=== PATIENT | male | born 1995 | race Hispanic/Latino ===

== ENCOUNTER 2020-11-29 19:22 | Emergency (ER) | payer BC, SELFPAY ==
[2020-11-29 19:59] LABS: Urine Blood 1+ (Negative); Urine Glucose Negative (Negative); Urine Protein Negative (Negative)
[2020-11-29] MEDS ORDERED: ONDANSETRON 4 MG/2 ML VIAL ONE (20:11)
[2020-11-29] MEDS ORDERED: CEFTRIAXONE 1000 MG/VIAL ONE (20:11)
[2020-11-29 20:12] LABS: Absolute Lymphocytes (CBC) 2.1 K/uL (0.7-4.9); Basophils % 0.3 % (0-1.3); Hematocrit 46.7 % (39.6-49.0); Lymphocytes % 21.2 % (15.3-44.8); MPV 8.9 fL (7.6-11.3)
[2020-11-29] MEDS ORDERED: KETOROLAC 30 MG/ML INJ ONE (20:12)
[2020-11-29] MEDS ORDERED: NA CHLORIDE 0.9% 1,000 ML ONE (20:12)
[2020-11-29 20:44] LABS: Potassium 4.4 mmol/L (3.5-5.1)
--- NOTE | 2020-11-29 20:48 | RAD REPORT ---
EXAM DESCRIPTION: US - Scrotum Testicles - 11/29/2020 8:34 pm CLINICAL HISTORY: Testicular pain COMPARISON: None FINDINGS: Right testicle measures 4.5 x 2.1 x 2.9 centimeters. Echotexture is homogeneous. Normal bl ood flow Left testicle measures 4.3 x 2 x 2.9 centimeters. Echotexture is homogeneous. Normal blood flow The epididymides are normal in size and echotexture. Normal blood flow is seen. Prominent soft tissue is present within the superior aspect of the left scrotum IMPRESSION: Prominent soft tissue within the superior aspect of the left scrotum may indicate a km ia
--- NOTE | 2020-11-29 21:28 | RAD REPORT ---
EXAM DESCRIPTION: CT - Abdomen Pelvis W Contrast - 11/29/2020 9:05 pm CLINICAL HISTORY: Abdominal pain TECHNIQUE: Computed axial tomography of the abdomen pelvis was obtained. 100 cc Isovue-300 was admin istered intravenously. Oral contrast was not requested which limits evaluation of bowel. All CT scans are performed using dose optimization technique as appropriate and may include automated exposure control or mA/KV adjustment according to patient size. FINDINGS: The liver, spleen, pancreas, adrenal and kidneys appear unremarkable. There is no evidence of diverticulitis. The normal appendix A left inguinal hernia is not visualized. However, there is a small right inguinal hernia containing fat. Small umbilical hernia IMPRESSION: No acute abnormality is displayed.
--- NOTE | 2020-11-29 21:37 | ER ---
Nurse's Notes [facility] Name: Pranav Carr Age: 25 yrs Sex: Male : 1995 Arrival Date: 11/29/2020 Time: 19:27 Bed 7 Private MD: Diagnosis: Abdominal tenderness-left testicular pain, currently treated for mild epididymitis Presentation: 11/29 19:30 Chief complaint: Patient states: left sided testicular pain that started yesterday sj1 around 1999. Denies discharge, painful urination. Coronavirus screen: Vaccine status: Patient reports being unvaccinated. Ebola Screen: Patient negative for fever greater than or equal to 101.5 degrees Fahrenheit, and additional compatible Ebola Virus Disease symptoms Patient denies exposure to infectious person. Patient denies travel to an Ebola-affected area in the 21 days before illness onset. Initial Sepsis Screen: Does the patient meet any 2 criteria? No. Patient's initial sepsis screen is negative. Does the patient have a suspected source of infection? No. Patient's initial sepsis screen is negative. Risk Assessment: Do you want to hurt yourself or someone else? Patient reports no desire to harm self or others. Onset of symptoms was November 28, 2020. 19:30 Method Of Arrival: Ambulatory [facility] 19:30 Acuity: YULISA 3 sj1 22:05 Note PT UP FOR DISCHARGE AT THIS TIME. PT AWAKE ALERT AOX4 SPEAKING IN FULL SENTENCES. cw2 PT AMBULATORY ALONE WITH A STEADY GAIT. DISCHARGE INSTRUCTIONS DISCUSSED WITH PT/SPOUSE. ALL QUESTIONS ANSWERED AND NO CONCERNS VERBALIZED AT THIS TIME. PT ADVISED TO RETURN TO ED AT ANYTIME. PT ACKNOWLEDGES. PT STABLE FOR DISCHARGE. Triage Assessment: 19:33 General: Appears in no apparent distress. Behavior is calm, cooperative, appropriate sj1 for age. Pain: Complains of pain in left testicular Pain does not radiate. Pain currently is 6 out of 10 on a pain scale. at worst was 10 out of 10 on a pain scale. level that patient reports is acceptable is 2 out of 10 on a pain scale. Quality of pain is described as crampy, Pain began 1 day ago. Historical: - Allergies: 19:33 No Known Allergies; sj1 - Home Meds: 19:33 lisinopril 10 mg Oral tab 1 tab once daily [Active]; sj1 - PMHx: 19:33 Hypertensive disorder; sj1 - Immunization history:: Adult Immunizations up to date. - Social history:: Smoking status: Patient denies any tobacco usage or history of. Patient uses alcohol, only on a social basis. Patient/guardian denies using street drugs. - Code Status:: Full code. Screenin:35 Abuse screen: Denies threats or abuse. Denies injuries from another. Nutritional sj1 screening: No deficits noted. Tuberculosis screening: No symptoms or risk factors identified. Fall Risk None identified. Assessment: 19:57 General: Appears in no apparent distress. Behavior is calm, cooperative. Pain: cw2 Complains of pain in groin Pain does not radiate. Pain currently is 3 out of 10 on a pain scale. Quality of pain is described as sharp, Pain began 1 day ago. Is continuous. Neuro: No deficits noted. Cardiovascular: No deficits noted. Respiratory: No deficits noted. GI: No deficits noted. : Reports burning with urination, since 24hrs AGO Parent/caregiver report the patient having discharge from penis that is. Vital Signs: 19:30 BP 128 / 77 RA Sitting (auto/reg); Pulse 86; Resp 16 S; Temp 98.5(O); Pulse Ox 100% on sj1 R/A; Weight 105.69 kg (R); Height 6 ft. 2 in. (187.96 cm) (R); Pain 6/10; 19:59 BP 123 / 75; Pulse 85; Resp 15; Pulse Ox 99% on R/A; Pain 3/10; cw2 21:00 BP 180 / 76; Pulse 79; Resp 16; Pulse Ox 98% on R/A; cw2 19:30 Body Mass Index 29.92 (105.69 kg, 187.96 cm) sj1 [place] Coma Score: 19:59 Eye Response: spontaneous(4). Verbal Response: oriented(5). Motor Response: obeys cw2 commands(6). Total: 15. ED Course: 19:27 Patient arrived in ED. bp1 19:33 Triage completed. sj1 19:36 Derek Nichols MD is Attending Physician. kadi 19:36 Arm band placed on left wrist. sj1 19:36 Patient has correct armband on for positive identification. sj1 19:44 Bryant Jacobson RN is Primary Nurse. cw2 19:59 No provider procedures requiring assistance completed. Initial lab(s) drawn, by ED cw2 staff, Urine collected: clean catch specimen, clear. Inserted saline lock: 20 gauge in left forearm, using aseptic technique. Blood collected. 20:01 Chem 7 Sent. cw2 20:01 CBC with Diff Sent. cw2 20:01 Urine Culture Sent. cw2 20:34 US Scrotum Testicles In Process Unspecified. EDMS 21:05 CT Abd/Pelvis - IV Contrast Only In Process Unspecified. EDMS 21:37 Robert Acevedo MD is Referral Physician. [facility] 22:07 IV discontinued. cw2 Administered Medications: 19:55 Drug: Zofran (Ondansetron) 4 mg Route: IVP; Site: left forearm; cw2 19:56 Drug: NS 0.9% 1000 ml Route: IV; Rate: 1 bolus; Site: left forearm; cw2 19:56 Drug: Rocephin (cefTRIAXone) 1 grams Route: IV; Rate: per protocol; Site: left forearm; cw2 19:56 Drug: TORadol (ketorolac) 30 mg Route: IVP; Site: left forearm; cw2 Outcome: 20:00 Condition: good cw2 21:37 Discharge ordered by MD. kadi 22:07 Discharged to home ambulatory. cw2 22:07 Condition: good 22:07 Discharge instructions given to patient, family, Instructed on discharge instructions, follow up and referral plans. 22:08 Patient left the ED. cw2 Signatures: Dispatcher [employer] Derek Bourgeois MD MD cha [place], Brittany bp1 Williams, Christopher, RN RN cw2 Amber Bal RN RN sj1 Corrections: (The following items were deleted from the chart) 21:09 21:06 BP 126 / 73; Pulse 81bpm; Resp 15bpm; Pulse Ox 98%; cw2 cw2
--- NOTE | 2020-11-29 21:37 | EDPHYS ---
Physician Documentation [facility] Name: Pranav Carr Age: 25 yrs Sex: Male : 1995 Arrival Date: 11/29/2020 Time: 19:27 Bed 7 Private MD: ED Physician Derek Nichols HPI: 11/29 20:52 This 25 yrs old Male presents to ER via Ambulatory with complaints of kadi Testicular Pain. 20:52 The patient presents with flank pain, described as crampy, sharp, of the left low back kadi and right low back. Onset: The symptoms/episode began/occurred 1 day(s) ago. Modifying factors: The symptoms are alleviated by nothing, the symptoms are aggravated by nothing. Associated signs and symptoms: The patient has no apparent associated signs or symptoms. Severity of symptoms: At their worst the symptoms were mild, moderate, in the emergency department the symptoms are unchanged. The patient has not experienced similar symptoms in the past. Historical: - Allergies: 19:33 No Known Allergies; sj1 - Home Meds: 19:33 lisinopril 10 mg Oral tab 1 tab once daily [Active]; sj1 - PMHx: 19:33 Hypertensive disorder; sj1 - Immunization history:: Adult Immunizations up to date. - Social history:: Smoking status: Patient denies any tobacco usage or history of. Patient uses alcohol, only on a social basis. Patient/guardian denies using street drugs. - Code Status:: Full code. ROS: 20:53 Constitutional: Negative for fever, chills, and weight loss, Eyes: Negative for injury, kadi pain, redness, and discharge, ENT: Negative for injury, pain, and discharge, Neck: Negative for injury, pain, and swelling, Cardiovascular: Negative for chest pain, palpitations, and edema, Respiratory: Negative for shortness of breath, cough, wheezing, and pleuritic chest pain, MS/Extremity: Negative for injury and deformity, Skin: Negative for injury, rash, and discoloration, Neuro: Negative for headache, weakness, numbness, tingling, and seizure, Psych: Negative for depression, anxiety, suicide ideation, homicidal ideation, and hallucinations, Allergy/Immunology: Negative for hives, rash, and allergies, Endocrine: Negative for neck swelling, polydipsia, polyuria, polyphagia, and marked weight changes, Hematologic/Lymphatic: Negative for swollen nodes, abnormal bleeding, and unusual bruising. 20:53 Abdomen/GI: Positive for abdominal pain, of the suprapubic area, posterior aspect of left lateral abdomen, posterior aspect of right lateral abdomen, right lower quadrant and left lower quadrant. 20:53 Back: Positive for flank pain, bilaterally. 20:53 : Positive for testicular pain of the left testicle. Exam: 20:53 Constitutional: This is a well developed, well nourished patient who is awake, alert, kadi and in no acute distress. Head/Face: Normocephalic, atraumatic. Eyes: Pupils equal round and reactive to light, extra-ocular motions intact. Lids and lashes normal. Conjunctiva and sclera are non-icteric and not injected. Cornea within normal limits. Periorbital areas with no swelling, redness, or edema. ENT: Nares patent. No nasal discharge, no septal abnormalities noted. Tympanic membranes are normal and external auditory canals are clear. Oropharynx with no redness, swelling, or masses, exudates, or evidence of obstruction, uvula midline. Mucous membranes moist. Neck: Trachea midline, no thyromegaly or masses palpated, and no cervical lymphadenopathy. Supple, full range of motion without nuchal rigidity, or vertebral point tenderness. No Meningismus. Chest/axilla: Normal chest wall appearance and motion. Nontender with no deformity. No lesions are appreciated. Cardiovascular: Regular rate and rhythm with a normal S1 and S2. No gallops, murmurs, or rubs. Normal PMI, no JVD. No pulse deficits. Respiratory: Lungs have equal breath sounds bilaterally, clear to auscultation and percussion. No rales, rhonchi or wheezes noted. No increased work of breathing, no retractions or nasal flaring. Abdomen/GI: Soft, non-tender, with normal bowel sounds. No distension or tympany. No guarding or rebound. No evidence of tenderness throughout. Back: No spinal tenderness. No costovertebral tenderness. Full range of motion. Skin: Warm, dry with normal turgor. Normal color with no rashes, no lesions, and no evidence of cellulitis. MS/ Extremity: Pulses equal, no cyanosis. Neurovascular intact. Full, normal range of motion. Neuro: Awake and alert, GCS 15, oriented to person, place, time, and situation. Cranial nerves II-XII grossly intact. Motor strength 5/5 in all extremities. Sensory grossly intact. Cerebellar exam normal. Normal gait. Psych: Awake, alert, with orientation to person, place and time. Behavior, mood, and affect are within normal limits. 20:53 : CVA tenderness, noted bilaterally, Male external genitalia: normal, Patient is not circumisioned. Bladder: is normal, Sexual behavior: the patient is sexually active, and reports a single partner. Vital Signs: 19:30 BP 128 / 77 RA Sitting (auto/reg); Pulse 86; Resp 16 S; Temp 98.5(O); Pulse Ox 100% on sj1 R/A; Weight 105.69 kg (R); Height 6 ft. 2 in. (187.96 cm) (R); Pain 6/10; 19:59 BP 123 / 75; Pulse 85; Resp 15; Pulse Ox 99% on R/A; Pain 3/10; cw2 21:00 BP 180 / 76; Pulse 79; Resp 16; Pulse Ox 98% on R/A; cw2 19:30 Body Mass Index 29.92 (105.69 kg, 187.96 cm) sj1 [place] Coma Score: 19:59 Eye Response: spontaneous(4). Verbal Response: oriented(5). Motor Response: obeys cw2 commands(6). Total: 15. MDM: 19:37 Patient medically screened. kadi 20:56 Differential diagnosis: UTI, testicular torsion, nonspecific abdominal pain, UTI, kadi prostatitis, urethritis. Data reviewed: vital signs, nurses notes, lab test result(s), EKG, radiologic studies, CT scan, ultrasound. Data interpreted: case monitor: not applicable for this patient encounter. rate is 85 beats/min, rhythm is regular, Pulse oximetry: on room air is 99 %. Test interpretation: by ED physician or midlevel provider: plain radiologic studies. Counseling: I had a detailed discussion with the patient and/or guardian regarding: the historical points, exam findings, and any diagnostic results supporting the discharge/admit diagnosis, lab results, radiology results. 11/29 19:38 Order name: CBC with Diff; Complete Time: 20:51 kadi 11/29 19:38 Order name: Chem 7; Complete Time: 20:51 kadi 11/29 19:38 Order name: US Scrotum Testicles; Complete Time: 20:51 [facility] 11/29 19:38 Order name: Urine Culture [facility] 11/29 19:58 Order name: Urine Dipstick-Ancillary; Complete Time: 20:51 [facility] 11/29 20:52 Order name: CT Abd/Pelvis - IV Contrast Only [facility] 11/29 19:38 Order name: Urine Dipstick-Ancillary (obtain specimen); Complete Time: 20:01 [facility] Administered Medications: 19:55 Drug: Zofran (Ondansetron) 4 mg Route: IVP; Site: left forearm; cw2 19:56 Drug: NS 0.9% 1000 ml Route: IV; Rate: 1 bolus; Site: left forearm; cw2 19:56 Drug: Rocephin (cefTRIAXone) 1 grams Route: IV; Rate: per protocol; Site: left forearm; cw2 19:56 Drug: TORadol (ketorolac) 30 mg Route: IVP; Site: left forearm; cw2 Disposition Summary: 11/29/20 21:37 Discharge Ordered Location: Home [facility] Problem: new [facility] Symptoms: have improved [facility] Condition: Stable [facility] Diagnosis - Abdominal tenderness - left testicular pain, currently treated for mild epididymitischa Followup: [facility] - With: Private Physician - When: 2 - 3 days - Reason: Recheck today's complaints, Continuance of care, Re-evaluation by your physician Followup: [facility] - With: Robert Acevedo MD - When: 2 - 3 days - Reason: Recheck today's complaints, Continuance of care, Re-evaluation by your physician Discharge Instructions: - Discharge Summary Sheet [facility] - Abdominal Pain, Adult [facility] - Epididymitis [facility] - Hematuria, Adult [facility] Forms: - Medication Reconciliation Form [facility] - Thank You Letter [facility] - Antibiotic Education [facility] - Prescription Opioid Use [facility] Prescriptions: - Ibuprofen 600 mg Oral Tablet - take 1 tablet by ORAL route every 6 hours As needed take with food; 20 tablet; [facility] Refills: 0, Product Selection Permitted - Doxycycline Hyclate 100 mg Oral Tablet - take 1 tablet by ORAL route every 12 hours; 20 tablet; Refills: 0, Product [facility] Selection Permitted Signatures: Dispatcher [employer] Derek Bourgeois MD MD cha Williams, Christopher RN RN cw2 Amber Bal RN RN sj1
[2020-11-29 22:13] VITALS: TEMP 98.5
[2020-11-29 22:15] VITALS: BP 180/76; O2SAT 98
== END 2020-11-29 22:08 | disposition home or self-care (01) ==
LOC: ER 19:22
DX: N45.1 Epididymitis (principal); R10.819 Abdominal tenderness, unspecified site; I10 Essential (primary) hypertension
CPT/HCPCS: 87088; 85025; 87086; 80048; 36415; 81003; 74177; 76870; 96375; 96374; 99284; Q9967; J7030; J2405

== ENCOUNTER 2024-04-18 22:46 | Observation (INO) | payer BC ==
--- OUTSIDE RECORDS SUMMARY | 2024-04-18 22:50 | XMS REPORT | Continuity of Care Document ---
Author Name Unknown Address [address] [facility] [place] [address] [facility] Address [address] [facility] [place] [address] Care Team Providers Care General Distillery Worker Name Role Phone LAB90 Attending Clinician Unavailable ROSALIE HIDALGO Attending Clinician Unavailab SUGAR Rock Attending Clinician Unavailable HANNAH BRENNAN Attending Clinician Unavailable Sugar Garcia Attending Clinician [phone] Payers Payer Name Policy Type Policy Number Effective Date Expirati on Date Source [facility] 2 [id number] 2023 00:00:00 Problems Condition Name Condition Details Condition Category Status Onset Date Resolution Date Last Treatment Date Treating Clinician Comments Source Influenza A Influenza A Disease Active 2021-02 00:00: 00 Felipa Douglasa david Well adult exam Well adult exam Disease Active 2021-02 00:00: 00 Felipa Douglasa david Prediabete s Prediabete s Disease Active 2021-02 00:00: 00 Felipa Douglasa l 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 Disease Active 2021-02 00:00: 00 Felipa hernandez Vitamin D deficiency Vitamin D deficiency Disease Active 2021-02 00:00: 00 Felipa Harry Externa david Hypertensi on Hypertensi on Disease Active 2020-02 0-04 00:00: 00 Felipa Emerson Overweight Overweight Disease Active 2021-1 0-04 00:00: 00 Felipa Emerson Class 1 obesity due to excess calories without serious comorbidit y with body mass index (BMI) of 33.0 to 33.9 in adult Class 1 obesity due to excess calories without serious comorbidit y with body mass index (BMI) of 33.0 to 33.9 in adult Disease Active 2020-02 00:00: 00 Felipa Emerson - Externa l Primary hypertensi on Primary hypertensi on Disease Active 2020-02 00:00: 00 Felipa Emerson - Externa l Class 1 obesity due to excess calories without serious comorbidit y with body mass index (BMI) of 33.0 to 33.9 in adult Class 1 obesity due to excess calories without serious comorbidit y with body mass index (BMI) of 33.0 to 33.9 in adult Disease Active 2020-02 00:00: 00 Felipa Maravillaold - Externa l Social History Social Habit Start Date Stop Date Quantity Comments Source Sexual orientation K germán Emerson - External History of Occupation Felipa Emerson - External Exposure to SARS-CoV-2 (event) Not sure Felipa Heredia ybold History SDOH Alcohol Frequency Felipa jessica - External History SDOH Alcohol Std Drinks Felipa Heredia ybold - External History SDOH Alcohol Binge Felipa Emerson - External Alcoholic beverage intake 2023-11-23 00:00:00 2023-11-23 00:00:00 .29 /d Felipa Emerson - External History of Social function 2022-11-19 00:00:00 2022-11-19 00:00:00 Felipa Emerson - External Alcohol intake 2022-02-15 00:00:00 2022-02-15 00:00:00 .29 /d Felipa Emerson - External Tobacco use and exposure 2022-01-30 00:00:00 2022-01-30 00:00:00 Smokeless tobacco non-user Felipa Emerson - External Alcohol Comment 2022-01-30 00:00:00 2022-01-30 00:00:00 moderately Felipa Emerson - External Education 2022-01-30 00:00:00 2022-01-30 00:00:00 17 Felipa Emerson - External Sex 2020-05-18 17:33:04 2020-05-18 17:33:04 Male (finding) Felipa Sesaroj Harry External Sex assigned at 1995 00:00:00 1995 00:00:00 M Felipa Haile Smoking Status Start Date Stop Date Source Never smoked tobacco Felipa Haile Medications Ordered Medication Name Filled Medication Name Start Date Stop Date Current Medication? Ordering Clinician Indication Dosage Frequency Signature (SIG) Comments Components Source Omeprazole 20 MG oral Delayed Release Capsule 2023-02 10:08: 56 Yes 20mg QD Take 1 capsule (20 mg total) by mouth daily as needed. Felipa hernandez Lisinopril 10 MG oral Tablet 2023-02 00:00: 00 Yes [id number] 10mg QD Take 1 tablet (10 mg total) by mouth daily. Felipa hernandez Lisinopril 10 MG oral Tablet 08-30 00:00: 00 11-22 00:00 :00 No [id number] take 1 tablet by mouth every day Felipa hernandez Omeprazole 20 MG oral Delayed Release Capsule 2021-02 11:20: 17 Yes 20mg QD Take 20 mg by mouth daily as needed Felipa hernandez Benzonatate (Tessalon Perles) 100 MG oral Capsule 2021-02 00:00: 00 11-22 00:00 :00 No [id number] 100mg Q.12520301 [id number] 3D Take 1 capsule (100 mg total) by mouth 3 times daily as needed for cough Felipa hernandez Albuterol HFA 108 (90 Base) MCG/ACT IN AERS 2021-02 00:00: 00 11-22 00:00 :00 No [id number] 2{puff} Q.25D Inhale 2 puffs into the lungs every 6 hours as needed for wheezing or shortness of breath Felipa hernandez Oseltamivir Phosphate 75 MG oral Capsule 2021-02 00:00: 00 02-21 05:59 :00 No [id number] 75mg Take 1 capsule (75 mg total) by mouth 2 times daily for 5 days Felipa hernandez Azithromyci n 250 MG oral Tablet 2021-02 00:00: 00 02-21 05:59 :00 No [id number] Take 2 tablets by mouth on day 1 then 1 tablet by mouth daily for 4 days thereafter . Felipa hernandez Cholecalcif mike (Vitamin D3) 20 MCG (800 UNIT) oral Tablet 2021-02 00:00: 00 Yes [id number] 1{tbl} Take 1 tablet by mouth daily Felipa hernandez Cholecalcif mike (Vitamin D3) 20 MCG (800 UNIT) oral Tablet 2021-02 00:00: 00 Yes [id number] 1{tbl} QD Take 1 tablet by mouth daily Felipa hernandez Omeprazole 20 MG oral Delayed Release Capsule 2021-02 09:03: 57 Yes 20mg QD Take 20 mg by mouth daily as needed Felipa hernandez Lisinopril 10 MG oral Tablet 2021-02 00:00: 00 Yes [id number] TAKE 1 TABLET BY MOUTH EVERY DAY Felipa hernandez Lisinopril 10 MG oral Tablet 2020-02 00:00: 00 Yes [id number] TAKE 1 TABLET BY MOUTH EVERY DAY Felipa Emerson Vitamin D, Ergocalcife rol, 1.25 MG (93639 UT) oral Capsule 2020-02 00:00: 00 Yes [id number] 56370W Take 1 capsule (50,000 units total) by mouth once a week Felipa Emerson Ceftriaxone Sodium (ROCEPHIN) 1 g 2020-02 22:00: 00 11-29 22:00 :00 No [id number] 1g Felipa Emerson Doxycycline Hyclate 100 MG oral Tablet 2020-02 00:00: 00 01-30 00:00 :00 No [id number] 100mg Take 1 tablet (100 mg total) by mouth 2 times daily Felipa hernandez Azithromyci n 1 g oral Pack 2020-02 00:00: 00 11-30 04:59 :00 No [id number] 1g Take 1 packet (1 g total) by mouth once for 1 dose Felipa Emerson Lisinopril 10 MG oral Tablet 2020-02 00:00: 00 Yes [id number] 10mg Take 1 tablet (10 mg total) by mouth daily Felipa Emerson Vital Signs Vital Name Observation Time Observation Value Comments S ource Systolic blood pressure 2023-11-23 15:10:00 126 mm[Hg] Felipa Herediaybo ld - External Diastolic blood pressure 2023-11-23 15:10:00 82 mm[Hg] Felipagallo Maravillao ld - External Heart rate 2023-11-23 15:10:00 59 /min Taye Emerson - External Body temperature 2023-11-23 15:10:00 36.06 Citlalli Felipa Maravillaold - External Respiratory rate 2023-11-23 15:10:00 18 /min Felipagallo Maravillaold - External Body height 2023-11-23 15:10:00 188 cm Clarisa page Seybold - External Body weight 2023-11-23 15:10:00 95.709 kg Clarisa camilo Seybold - External BMI 2023-11-23 15:10:00 27.09 kg/m2 Clarisa camilo Seybold - External Oxygen saturation in Arterial blood by Pulse oximetry 2023-11-23 15:10:00 99 /min Felipagallo Maravillamir ld - External Respiratory rate 2022-02-15 17:15:00 16 /min Felipa Herediaybold - External Body height 2022-02-15 17:15:00 188 cm Clarisa ey Seybold - External Body weight 2022-02-15 17:15:00 116.121 kg Clarisa ey Seybold - External BMI 2022-02-15 17:15:00 32.87 kg/m2 Clarisa ey Seybold - External Systolic blood pressure 2022-02-15 17:15:00 128 mm[Hg] Felipa Herediaybo ld - External Diastolic blood pressure 2022-02-15 17:15:00 76 mm[Hg] Felipa Seybo ld - External Heart rate 2022-02-15 17:15:00 95 /min Taye y Renitaold - External Body temperature 2022-02-15 17:15:00 36.78 Citlalli Felipa Seybold - External Body temperature 2022-01-30 13:55:00 36.56 Citlalli Felipa Seybold - External Respiratory rate 2022-01-30 13:55:00 16 /min Felipa Seybold - External Body height 2022-01-30 13:55:00 188 cm Clarisa ey Seybold - External Body weight 2022-01-30 13:55:00 116.574 kg Clarisa ey Seybold - External BMI 2022-01-30 13:55:00 33.00 kg/m2 Clarisa ey Seybold - External Systolic blood pressure 2022-01-30 13:55:00 122 mm[Hg] Felipa Seybo ld - External Diastolic blood pressure 2022-01-30 13:55:00 82 mm[Hg] Felipa Seybo ld - External Heart rate 2022-01-30 13:55:00 79 /min Kelse y Seybold - External Systolic blood pressure 2020-12-20 20:53:00 114 mm[Hg] Felipa Seybo ld Diastolic blood pressure 2020-12-20 20:53:00 72 mm[Hg] Felipa Seybo ld Heart rate 2020-12-20 20:53:00 76 /min Kelse y Seybold Body temperature 2020-12-20 20:53:00 37 Citlalli Felipa Seybold Respiratory rate 2020-12-20 20:53:00 14 /min Felipa Seybold Body height 2020-12-20 20:53:00 188 cm Clarisa ey Seybold Body weight 2020-12-20 20:53:00 105.235 kg Clarisa ey Seybold BMI 2020-12-20 20:53:00 29.79 kg/m2 Clarisa ey Seybold Systolic blood pressure 2020-12-20 20:53:00 114 mm[Hg] Felipa Seybo ld Diastolic blood pressure 2020-12-20 20:53:00 72 mm[Hg] Felipa Seybo ld Heart rate 2020-12-20 20:53:00 76 /min Kelse y Seybold Body temperature 2020-12-20 20:53:00 37 Citlalli Felipa Seybold Respiratory rate 2020-12-20 20:53:00 14 /min Felipa Seybold Body height 2020-12-20 20:53:00 188 cm Clarisa ey Seybold Body weight 2020-12-20 20:53:00 105.235 kg Clarisa ey Seybold BMI 2020-12-20 20:53:00 29.79 kg/m2 Clarisa ey Seybold Systolic blood pressure 2020-11-29 21:09:00 117 mm[Hg] Felipa Seybo ld Diastolic blood pressure 2020-11-29 21:09:00 79 mm[Hg] Felipa Seybo ld Heart rate 2020-11-29 21:09:00 87 /min Kelse y Seybold Body temperature 2020-11-29 21:09:00 36.78 Citlalli Felipa Seybold Respiratory rate 2020-11-29 21:09:00 14 /min Felipa Seybold Body height 2020-11-29 21:09:00 188 cm Clarisa ey Seybold Body weight 2020-11-29 21:09:00 105.688 kg Clarisa ey Seybold BMI 2020-11-29 21:09:00 29.92 kg/m2 Clarisa ey Seybold Systolic blood pressure 2020-11-29 21:09:00 117 mm[Hg] Felipa Seybo ld Diastolic blood pressure 2020-11-29 21:09:00 79 mm[Hg] Felipa Seybo ld Heart rate 2020-11-29 21:09:00 87 /min Kelse y Seybold Body temperature 2020-11-29 21:09:00 36.78 Citlalli Felipa Seybold Respiratory rate 2020-11-29 21:09:00 14 /min Felipa Seybold Body height 2020-11-29 21:09:00 188 cm Clarisa ey Seybold Body weight 2020-11-29 21:09:00 105.688 kg Clarisa ey Seybold BMI 2020-11-29 21:09:00 29.92 kg/m2 Clarisa ey Seybold Systolic blood pressure 2020-11-22 20:24:00 172 mm[Hg] Felipa Seybo ld Diastolic blood pressure 2020-11-22 20:24:00 108 mm[Hg] Felipa Seybo ld Heart rate 2020-11-22 20:24:00 92 /min Taye y Idania Body temperature 2020-11-22 20:24:00 37.39 Citlalli Felipa Emerson Respiratory rate 2020-11-22 20:24:00 16 /min Felipa Emerson Body height 2020-11-22 20:24:00 188 cm Clarisa Emerson Body weight 2020-11-22 20:24:00 111.585 kg Clarisa Emerson BMI 2020-11-22 20:24:00 31.58 kg/m2 Clarisa page Seybdoni Systolic blood pressure 2020-11-22 20:24:00 172 mm[Hg] Felipa Herediaybo ld Diastolic blood pressure 2020-11-22 20:24:00 108 mm[Hg] Felipa Maravillao ld Heart rate 2020-11-22 20:24:00 92 /min Taye Emerson Body temperature 2020-11-22 20:24:00 37.39 Citlalli Felipa Emerson Respiratory rate 2020-11-22 20:24:00 16 /min Felipa Emerson Body height 2020-11-22 20:24:00 188 cm Clarisa Emerson Body weight 2020-11-22 20:24:00 111.585 kg Clarisa Emerson BMI 2020-11-22 20:24:00 31.58 kg/m2 Clarisa Emerson Procedures Procedure Date / Time Performed Performing Clinician Source LS RAPID STREP ASSAY-LAB TEST 2022-02-15 17:49:00 Hannah Brennan - External LS RAPID FLU ASSAY-LAB TEST 2022-02-15 17:49:00 Hannah Brennan - External WRITTEN AUTHORIZATION 2020-11-22 21:28:00 Sugar Trotter HGB A1C WITH MBG ESTIMATION 2020-11-22 21:28:00 Sugar Trotter GGT 2020-11-22 21:28:00 Sugar Trotter eybold CMP14+CBC/D/PLT+TSH W/RFLX 2020-11-22 21:28:00 Sugar Trotter Encounters Start Date/Time End Date/Time Encounter Type Admission Type Attending [facility] Care Department Encounter ID Source 2023-11-23 10:45:00 2023-11-23 10:45:00 Outpatient NAN FELIPA DAVID [id number] [facility] 2023-11-23 10:00:00 2023-11-23 10:00:00 Outpatient ROSALIE HIDALGO FELIPA DAVID [id number] [facility] 2023-11-20 00:00:00 2023-11-20 00:00:00 Outpatient SUGAR TROTTER FELIPA DAVID [id number] [facility] 2023-10-05 00:00:00 2023-10-05 00:00:00 Outpatient KHADIJAHDavid SUGAR DAVID [id number] [facility] 2023-08-31 00:00:00 2023-08-31 00:00:00 Outpatient SERGO SUGAR DAVID [id number] [facility] 2022-11-04 00:00:00 2022-11-04 00:00:00 Outpatient SUGAR TROTTER FELIPA DAVID [id number] [facility] 2022-10-10 15:30:00 2022-10-10 15:30:00 Outpatient STEPHENIE HANNAH DAVID [id number] [facility] 2022-09-04 13:45:00 2022-09-04 13:45:00 Outpatient PREZAMary Beth HANNAH DAVID [id number] [facility] 2022-07-31 08:00:00 2022-07-31 08:00:00 Outpatient PREISABELMary Beth HANNAH FELIPA DAVID [id number] [facility] 2022-02-15 11:45:00 2022-02-15 11:45:00 Outpatient PREZAHANNAH Clinton [id number] [facility] 2022-02-15 00:00:00 2022-02-15 00:00:00 Outpatient PREZAHANNAH Clinton [id number] [facility] 2022-02-01 00:00:00 2022-02-01 00:00:00 Outpatient PREHANNAH HOWE [id number] [facility] 2022-01-31 00:00:00 2022-01-31 00:00:00 Outpatient HANNAH BRENNANSEY [id number] Felipa Emerson 2022-01-30 09:15:00 2022-01-30 09:15:00 Outpatient LAB90 FELIPA DAVID [id number] [facility] 2022-01-30 08:00:00 2022-01-30 08:00:00 Outpatient HANNAH BRENNANSEY [id number] [facility] 2022-01-21 00:00:00 2022-01-21 00:00:00 Outpatient SUGAR TROTTER FELIPA DAVID [id number] [facility] 2021-01-24 00:00:00 2021-01-24 00:00:00 Outpatient SUGAR TROTTER FELIPA DAVID [id number] [facility] 2021-01-20 00:00:00 2021-01-20 00:00:00 Outpatient SUGAR TROTTER FELIPA DAVID [id number] [facility] 2020-12-20 16:15:00 2020-12-20 16:15:00 Outpatient LAB90 FELIPA DAVID [id number] [facility] 2020-12-20 15:41:53 2020-12-20 16:11:53 Office Visit Sugar Trotter [id number] [id number] 2020-12-20 15:41:53 2020-12-20 16:11:53 Office Visit Sugar Trotter [id number] [id number] [id number] [id number] [facility] 2020-11-30 00:00:00 2020-11-30 00:00:00 Outpatient SUGAR TROTTER [id number] [facility] 2020-11-29 17:10:00 2020-11-29 17:10:00 Outpatient LAB90 FELIPA DAVID [id number] Felipa Emerson 2020-11-29 16:06:57 2020-11-29 16:36:57 Office Visit Sugar Trotter [id number] [id number] 2020-11-29 16:06:57 2020-11-29 16:36:57 Office Visit Sugar Trotter [id number] [id number] [id number] Felipa Emerson 2020-11-24 00:00:00 2020-11-24 00:00:00 Outpatient SUGAR TROTTERGALLO DAVID [id number] Felipa Emerson 2020-11-23 00:00:00 2020-11-23 00:00:00 Outpatient SUGAR TROTTER FELIPA DAVID [id number] Felipa Emerson 2020-11-22 16:25:00 2020-11-22 16:25:00 Outpatient LAB FELIPA LAINEZSEY [id number] Felipa Emerson 2020-11-22 15:16:09 2020-11-22 15:46:09 Office Visit Sugar Trotter [id number] [id number] Felipa [facility] 2020-11-22 15:16:09 2020-11-22 15:46:09 Office Visit Sugar Trotter [id number] [id number] [id number] [id number] Results Test Description Test Time Test Comments Results Result Co mments Source Felipa EmersonWRITTEN [id number] 22:39:00WRITTEN AUTHORIZATIONComment: Written Authorization Received.Authorization received from SUGAR TROTTER MD [id number] by Valentina Up [facility]Felipa MaravillaJbmaebwCKR28+CBC/D/PLT+TSH W/[id number] 11:11:00* Test Item Value Reference Range Interpretation Comme nts GLUCOSE, SERUM (test code = 2345-7) 91 mg/dL 65-99 BUN (test code = 3094-0) 13 mg/dL 6-20 CREATININE, SERUM (test code = 2160-0) 1.07 mg/dL 0.76-1.27 EGFR IF NONAFRICN AM (test code = 54320-4) 97 mL/min/1.73 >59 EGFR IF AFRICN AM (test code = 90349-7) 112 mL/min/1.73 >59 [facility] currently reports eGFR in compliance with the current ?recommendations of the National Kidney Foundation. [facility] will ?update reporting as new guidelines are published from the NKF-ASN ?Task force. BUN/CREATININE RATIO (test code = 3097-3) 9-20 SODIUM, SERUM (test code = 2951-2) 141 mmol/L 134-144 POTASSIUM, SERUM (test code = 2823-3) 4.2 mmol/L 3.5-5.2 CHLORIDE, SERUM (test code = 2075-0) 102 mmol/L 96-106 CARBON DIOXIDE, TOTAL (test code = 8-9) 24 mmol/L 20-29 CALCIUM, SERUM (test code = 97348-9) 9.7 mg/dL 8.7-10.2 PROTEIN, TOTAL, SERUM (test code = 2885-2) 7.6 g/dL 6.0-8.5 ALBUMIN, SERUM (test code = 1751-7) 5.0 g/dL 4.1-5.2 GLOBULIN, TOTAL (test code = 63696-3) 2.6 g/dL 1.5-4.5 A/G RATIO (test code = 1759-0) 1.2-2.2 BILIRUBIN, TOTAL (test code = 1975-2) 0.4 mg/dL 0.0-1.2 ALKALINE PHOSPHATASE, SERUM (test code = 6768-6) See_Comment H Please note reference interval change [Automated message] The system which generated this result transmitted reference range: 44 - 121 IU/L. The reference range was not used to interpret this result as normal/abnormal. AST (SGOT) (test code = 1920-8) See_Comment [Automated message] The system which generated this result transmitted reference range: 0 - 40 IU/L. The reference range was not used to interpret this result as normal/abnormal. ALT (SGPT) (test code = 1742-6) See_Comment [Automated message] The system which generated this result transmitted reference range: 0 - 44 IU/L. The reference range was not used to interpret this result as normal/abnormal. TSH (test code = 27241-4) See_Comment [Automated message] The system which generated this result transmitted reference range: 0.450 - 4.500 uIU/mL. The reference range was not used to interpret this result as normal/abnormal. WHITE BLOOD CELL (WBC) COUNT (test code = 6690-2) See_Comment [Automated message] The system which generated this result transmitted reference range: 3.4 - 10.8 x10E3/uL. The reference range was not used to interpret this result as normal/abnormal. RED BLOOD CELL (RBC) COUNT (test code = 789-8) See_Comment [Automated message] The system which generated this result transmitted reference range: 4.14 - 5.80 x10E6/uL. The reference range was not used to interpret this result as normal/abnormal. HEMOGLOBIN (test code = 718-7) 15.9 g/dL 13.0-17.7 HEMATOCRIT (test code = 4544-3) 48.2 % 37.5-51.0 MCV (test code = 787-2) 92 fL 79-97 MCH (test code = 785-6) 30.2 pg 26.6-33.0 MCHC (test code = 786-4) 33.0 g/dL 31.5-35.7 RDW (test code = 788-0) 12.2 % 11.6-15.4 PLATELETS (test code = 777-3) See_Comment [Automated message] The system which generated this result transmitted reference range: 150 - 450 x10E3/uL. The reference range was not used to interpret this result as normal/abnormal. NEUTROPHILS (test code = 770-8) 66 % Not Estab. LYMPHS (test code = 736-9) 29 % Not Estab. MONOCYTES (test code = 5905-5) 5 % Not Estab. EOS (test code = 713-8) 0 % Not Estab. BASOS (test code = 706-2) 0 % Not Estab. NEUTROPHILS (ABSOLUTE) (test code = 751-8) See_Comment [Automated message] The system which generated this result transmitted reference range: 1.4 - 7.0 x10E3/uL. The reference range was not used to interpret this result as normal/abnormal. LYMPHS (ABSOLUTE) (test code = 731-0) See_Comment [Automated message] The system which generated this result transmitted reference range: 0.7 - 3.1 x10E3/uL. The reference range was not used to interpret this result as normal/abnormal. MONOCYTES(ABSOLUTE) (test code = 742-7) See_Comment [Automated message] The system which generated this result transmitted reference range: 0.1 - 0.9 x10E3/uL. The reference range was not used to interpret this result as normal/abnormal. EOS (ABSOLUTE) (test code = 711-2) See_Comment [Automated message] The system which generated this result transmitted reference range: 0.0 - 0.4 x10E3/uL. The reference range was not used to interpret this result as normal/abnormal. BASO (ABSOLUTE) (test code = 704-7) See_Comment [Automated message] The system which generated this result transmitted reference range: 0.0 - 0.2 x10E3/uL. The reference range was not used to interpret this result as normal/abnormal. IMMATURE GRANULOCYTES (test code = 94294-9) 0 % Not Estab. IMMATURE GRANS (ABS) (test code = 07343-5) See_Comment [Automated message] The system which generated this result transmitted reference range: 0.0 - 0.1 x10E3/uL. The reference range was not used to interpret this result as normal/abnormal. GALINDO (test code = GALINDO) [facility] results reported in Eastern Time. [facility] Clinical Information:SRC :Blood, venous*Venipunc ture ? [facility] Source of Specimen:Blood, venous*Venipunc Lab Interpretation (test code = 32081-8) Abnormal Felipa IdaniaHGB A1C WITH MBG [id number] 11:11:00* Test Item Value Reference Range Interpretation Comme nts HEMOGLOBIN A1C (test code = 4548-4) 5.7 % 4.8-5.6 H ? . ? Prediabetes: 5.7 - 6.4 ? Diabetes: >6.4 ? Glycemic control for adults with diabetes: <7.0 ESTIM. AVG GLU (EAG) (test code = 23524-3) 117 mg/dL GALINDO (test code = GALINDO) [facility] results reported in Eastern Time. [facility] Clinical Information:[facility] Source of Specimen:Blood, venous*Venipunc Lab Interpretation (test code = 27352-5) Abnormal Felipa Emerson
[2024-04-19 00:10] LABS: Absolute Lymphocytes (CBC) 1.5 K/uL (0.7-4.9); Absolute Monocytes 1.1 K/uL (0.1-1.3); Absolute Neutrophil 14.3 K/uL (1.8-8.0); Basophils % 0.2 % (0-1.3); Hematocrit 44.4 % (39.6-49.0); Lymphocytes % 8.9 % (15.3-44.8); MCH 31.4 pg (27.0-35.0); MCHC 33.8 g/dL (32.0-36.0); MCV 92.8 fL (80-100); MPV 9.2 fL (7.6-11.3); Monocytes % 6.5 % (3.3-12.3); Neutrophils % 84.4 % (41.7-73.7); Platelets 208 thou/uL (152-406); RBC Red Blood Cell Count 4.78 M/uL (4.33-5.43); Red Cell Distribution Width 12.8 % (12.1-15.2)
[2024-04-19 00:49] LABS: Albumin/Globulin Ratio 1.1 (1.1-1.8); Anion Gap 8.1 mEq/L (5.0-15.0); Bilirubin Total 0.4 mg/dL (0.2-1.0); Globulin 3.5 g/dL (2.3-3.5); Protein, Total 7.5 g/dL (6.4-8.2)
[2024-04-19] MEDS ORDERED: ONDANSETRON 4 MG/2 ML VIAL ONE ×2 (00:50→09:43)
[2024-04-19] MEDS ORDERED: KETOROLAC 30 MG/ML INJ ONE (00:50)
[2024-04-19] MEDS ORDERED: FAMOTIDINE 20 MG/2 ML VIAL IV ONE (00:50)
[2024-04-19] MEDS ORDERED: NA CHLORIDE 0.9% 1,000 ML ONE (00:51)
[2024-04-19 01:07] LABS: Potassium 4.1 mEq/L (3.5-5.1)
--- NOTE | 2024-04-19 04:15 | RAD REPORT ---
CLINICAL HISTORY: Epigastric and RLQ pain. COMPARISON: CT Abdomen 11/29/2020. TECHNIQUE: CT ABDOMEN PELVIS WITH IV CONTRAST on 04/19/2024 12:12 AM RN CVOR This exam was performed according to our departmental dose-optimization program, which includes autom ated exposure control, adjustment of the mA and/or kV according to patient size and/or use of iterative reconstruction technique. FINDINGS: Lower lungs are clear. Abdomen: The liver is normal in appearance. There is no biliary dilatation. Gallbladder is normal in appearance. The pancreas and spleen are normal in appearance. The adrenal glands and kidneys are unremarkable. Abdominal aorta is normal in course and caliber without aneurysm. There is no free air. There is no r etroperitoneal adenopathy. Pelvis: There is no bowel obstruction. Urinary bladder is unremarkable. There is no free fluid. Appen jairo is borderline in diameter at 9 mm. There is faint surrounding inflammation. Skeleton: There are no acute osseous findings. No suspicious bony lesions. IMPRESSION: Suspect mild acute appendicitis. Electronically signed by: Edvin Sifuentes MD 04/19/2024 02:38 AM RN CVOR Due to temporary technical issues with the PACS/[employer] reporting system, reports are being shaila d by the in-house radiologist without review as a courtesy to ensure prompt reporting the interpreting radiologist is fully responsible for the content of the report. Transcribed Date/Time: 04/19/2024 4:15 AM
--- NOTE | 2024-04-19 04:19 | ER ---
Nurse's Notes [facility] Name: Pranav Carr Age: 29 yrs Sex: Male : 1995 Arrival Date: 04/18/2024 Time: 22:46 Bed 20 Private MD: Diagnosis: Unspecified acute appendicitis Presentation: 04/18 23:00 Chief complaint: Patient states: STARTED HAVING MID EPIGASTRIC PAIN AND NOW I AM HAVING ha1 RIGHT LOWER QUADRANT PAIN, NAUSEA, AND VOMITING. 23:00 Coronavirus screen: Client denies travel out of the [place] in the last 14 days. Ebola ha1 Screen: No symptoms or risks identified at this time. Initial Sepsis Screen: Does the patient meet any 2 criteria? No. Patient's initial sepsis screen is negative. Does the patient have a suspected source of infection? No. Patient's initial sepsis screen is negative. Risk Assessment: Do you want to hurt yourself or someone else? Patient reports no desire to harm self or others. Onset of symptoms was April 18, 2024. 23:00 Method Of Arrival: Ambulatory ha1 23:00 Acuity: YULISA 3 ha1 Triage Assessment: 23:00 General: Appears uncomfortable, Behavior is cooperative. Pain: Complains of pain in ha1 right lower quadrant Pain currently is 9 out of 10 on a pain scale. Quality of pain is described as throbbing. Neuro: Level of Consciousness is awake, alert, obeys commands, Oriented to person, place, time, situation. Cardiovascular: Capillary refill < 3 seconds Patient's skin is warm and dry. Respiratory: Airway is patent Respiratory effort is even, unlabored, Respiratory pattern is regular, symmetrical. GI: Abdomen is round non-distended, Reports lower abdominal pain, nausea, vomiting. Musculoskeletal: Circulation, motion, and sensation intact. Historical: - Allergies: 23:20 No Known Allergies; ha1 - Home Meds: 23:20 lisinopril 10 mg Oral tab 1 tab once daily [Active]; ha1 - PMHx: 23:20 Hypertensive disorder; ha1 - Immunization history:: Adult Immunizations up to date. - Infectious Disease History:: Denies. - Social history:: Smoking status: Patient denies any tobacco usage or history of. Screenin:20 [facility] ED Fall Risk Assessment (Adult) History of falling in the last 3 months, ay including since admission No falls in past 3 months (0 pts) Confusion or Disorientation No (0 pts) Intoxicated or Sedated No (0 pts) Impaired Gait No (0 pts) Mobility Assist Device Used No (0 pt) Altered Elimination No (0 pt) Score/Fall Risk Level 0 - 2 = Low Risk Oriented to surroundings, Maintained a safe environment, Educated pt \T\ family on fall prevention, incl call for assistance when getting out of bed. Abuse screen: Denies threats or abuse. Nutritional screening: No deficits noted. Tuberculosis screening: No symptoms or risk factors identified. Assessment: 23:20 General: Appears in no apparent distress. uncomfortable, Behavior is calm, cooperative. ay Pain: Complains of pain in abdomen and right lower quadrant Pain currently is 7 out of 10 on a pain scale. Pain began 3 hours ago. Neuro: Level of Consciousness is awake, alert, obeys commands, Oriented to person, place, time, situation, Speech is normal. Cardiovascular: Denies chest pain, nausea, vomiting. Respiratory: Denies shortness of breath. GI: Abdomen is tender to palpation in epigastric area and right lower quadrant Reports lower abdominal pain. : No signs and/or symptoms were reported regarding the genitourinary system. EENT: No signs and/or symptoms were reported regarding the EENT system. Derm: No signs and/or symptoms reported regarding the dermatologic system. 04/19 04:02 Reassessment: Patient appears in no apparent distress at this time. ay Vital Signs: 04/18 23:00 Pulse 86; Resp 17 S; Temp 97.6(T); Pulse Ox 100% on R/A; Weight 93.44 kg; Height 6 ft. ha1 1 in. ; 23:00 BP 103 / 55; ha1 23:30 BP 116 / 62; Pulse 95; Resp 20; Pulse Ox 95% on R/A; ay 04/19 00:18 BP 124 / 58; Pulse 68; Resp 19; Pulse Ox 98% on R/A; ay 01:00 BP 131 / 58; Pulse 74; Resp 16; Pulse Ox 99% on R/A; ay 05:31 BP 111 / 70; Pulse 60; Resp 16; Pulse Ox 98% on R/A; ha1 04/18 23:00 Body Mass Index 27.18 (93.44 kg, 185.42 cm) ha1 [place] Coma Score: 04/18 23:20 Eye Response: spontaneous(4). Motor Response: obeys commands(6). Verbal Response: ay oriented(5). Total: 15. ED Course: 22:48 Patient arrived in ED. im 22:52 Derek Salgado PA is PHCP. cp 22:52 Ochoa Kitchen MD is Attending Physician. cp 23:20 Triage completed. ha1 23:28 CBC with Diff Sent. ha1 23:28 CMP Sent. ha1 23:28 Lipase Sent. ha1 04/19 01:14 Nneka Dillard, PRANAY is Primary Nurse. ay 01:30 CT Abd/Pelvis - IV Contrast Only In Process Unspecified. EDMS 04:18 Prince Moreau MD is Hospitalizing Provider. sp4 06:29 Patient admitted, IV remains in place. ha1 Administered Medications: 00:30 Drug: Ondansetron IVP 4 mg IVP once; over 2 minutes Route: IVP; Site: right antecubital;ha1 06:28 Follow up: Response: No adverse reaction ha1 00:32 Drug: Ketorolac IVP 15 mg IVP once Route: IVP; Site: right antecubital; ha1 06:27 Follow up: Response: No adverse reaction ha1 00:34 Drug: Famotidine IVP 20 mg IVP once; dilute with 10 mL 0.9% NaCl; give over 2 minutes ha1 Route: IVP; Site: right antecubital; 06:28 Follow up: Response: No adverse reaction ha1 00:36 Drug: NS 0.9% IV 1000 ml IV at 1 bolus Per protocol; to be given as a bolus over 60 ha1 minutes Route: IV; Rate: 1 bolus; Site: right antecubital; 06:28 Follow up: IV Status: Completed infusion ha1 Outcome: 04:18 Decision to Hospitalize by Provider. sp4 06:29 Admitted to Med/surg accompanied by nurse, ha1 06:29 Condition: stable 06:29 Instructed on the need for admit, 06:31 Patient left the ED. ha1 Signatures: Dispatcher [employer] EDID Derek Salgado PA PA Rosa Ybarra RN RN ha1 Ochoa Kitchen MD MD sp4 Maria C Danielle, [place], RN RN ay
--- NOTE | 2024-04-19 04:20 | EDPHYS ---
Physician Documentation [facility] Name: Pranav Carr Age: 29 yrs Sex: Male : 1995 Arrival Date: 04/18/2024 Time: 22:46 Bed 20 Private MD: ED Physician Ochoa Kitchen HPI: 04/18 23:30 This 29 yrs old Male presents to ER via Ambulatory with complaints of cp Epigastric Pain, Abdominal Pain, Dizziness. 23:30 The patient presents with abdominal pain in the epigastric area, right lower quadrant. cp Onset: The symptoms/episode began/occurred today. The symptoms do not radiate. Associated signs and symptoms: Pertinent positives: nausea, Pertinent negatives: chest pain, constipation, diarrhea, dysuria, fever, testicular pain, back pain. The symptoms are described as constant. Modifying factors: the symptoms are aggravated by pressure, walking. Historical: - Allergies: 23:20 No Known Allergies; ha1 - Home Meds: 23:20 lisinopril 10 mg Oral tab 1 tab once daily [Active]; ha1 - PMHx: 23:20 Hypertensive disorder; ha1 - Immunization history:: Adult Immunizations up to date. - Infectious Disease History:: Denies. - Social history:: Smoking status: Patient denies any tobacco usage or history of. ROS: 23:33 Constitutional: Negative for body aches, chills, fever, poor PO intake, cp 23:33 Cardiovascular: Negative for chest pain, edema, palpitations, cp 23:33 Respiratory: Negative for cough, shortness of breath, wheezing, 04/19 04:19 Constitutional: Negative for fever, chills, and weight loss, Positive abdominal pain sp4 Exam: 04/18 23:35 Constitutional: The patient appears in no acute distress, alert, awake, cp non-diaphoretic, non-toxic, well developed, well nourished, uncomfortable, 23:35 Head/Face: Normocephalic, atraumatic. cp 23:35 Eyes: Periorbital structures: appear normal, Conjunctiva: normal, no exudate, no injection, Sclera: no appreciated abnormality, Lids and lashes: appear normal, bilaterally, 23:35 ENT: External ear(s): are unremarkable, Nose: is normal, Mouth: Lips: moist, Oral mucosa: moist, Posterior pharynx: Airway: no evidence of obstruction, patent, 23:35 Chest/axilla: Inspection: normal, 23:35 Cardiovascular: Rate: normal, Rhythm: regular, 23:35 Respiratory: the patient does not display signs of respiratory distress, Respirations: normal, no use of accessory muscles, no retractions, labored breathing, is not present, Breath sounds: are clear throughout, no decreased breath sounds, no stridor, no wheezing, 23:35 Abdomen/GI: Inspection: abdomen appears normal, Bowel sounds: active, all quadrants, Palpation: soft, in all quadrants, moderate abdominal tenderness, in the epigastric area and right lower quadrant, 23:35 Back: pain, is absent, 23:35 Neuro: Orientation: to person, place \T\ time. Mentation: is normal, Vital Signs: 23:00 Pulse 86; Resp 17 S; Temp 97.6(T); Pulse Ox 100% on R/A; Weight 93.44 kg; Height 6 ft. ha1 1 in. ; 23:00 BP 103 / 55; ha1 23:30 BP 116 / 62; Pulse 95; Resp 20; Pulse Ox 95% on R/A; ay 03 00:18 BP 124 / 58; Pulse 68; Resp 19; Pulse Ox 98% on R/A; ay 01:00 BP 131 / 58; Pulse 74; Resp 16; Pulse Ox 99% on R/A; ay 05:31 BP 111 / 70; Pulse 60; Resp 16; Pulse Ox 98% on R/A; ha1 04/18 23:00 Body Mass Index 27.18 (93.44 kg, 185.42 cm) 1 [place] Coma Score: 04/18 23:20 Eye Response: spontaneous(4). Motor Response: obeys commands(6). Verbal Response: ay oriented(5). Total: 15. MDM: 23:15 Medical Screening Exam initiated cp 04/19 00:00 Differential diagnosis: appendicitis, cholecystitis, Cholelithiasis, gastritis, cp gastroesophageal reflux disease, non-specific abd pain, pancreatitis, Peptic Ulcer Disease, Perf. Duodenal Ulcer, Perf. Gastric Ulcer. 04:06 ED course: CLINICAL HISTORY: Epigastric and RLQ pain. COMPARISON: CTAbdomen 11/29/2020. sp4 TECHNIQUE: CTABDOMEN PELVIS WITH IV CONTRAST on 04/19/2024 12:12 AM [employer]ACHINE TENDER This exam was performed according to our departmental dose-optimization program, which includes automated exposure control, adjustment of the mA and/or kV according to patient size and/or use of iterative reconstruction technique. FINDINGS: Lower lungs are clear. Abdomen: The liver is normal in appearance. There is no biliary dilatation. Gallbladder is normal in appearance. The pancreas and spleen are normal in appearance. The adrenal glands and kidneys are unremarkable. Abdominal aorta is normal in course and caliber without aneurysm. There is no free air. There is no retroperitoneal adenopathy. Pelvis: There is no bowel obstruction. Urinary bladder is unremarkable. There is no free fluid. Appendix is borderline in diameter at 9 mm. There is faint surrounding inflammation. Skeleton: There are no acute osseous findings. No suspicious bony lesions. IMPRESSION: Suspect mild acute appendicitis. Electronically signed by: Edvin Sifuentes MD 04/19/2024 02:38 AM. 04:19 Differential diagnosis: idiopathic dizziness, sepsis, vertigo. Data reviewed: vital sp4 signs, nurses notes, lab test result(s), radiologic studies, CT scan. Consideration of Admission/Observation Patient was admitted/placed on observation. Escalation of care including admission/observation considered. Management of patient was discussed with the following: Hospitalist: Prieto CHAVEZ . Drawer Fitter: Gerald CHAVEZ . 04/18 23:25 Order name: CBC with Diff; Complete Time: 01:24 cp 04/19 01:24 Interpretation: Normal except: WBC 16.90; BILL% 84.4; LYM% 8.9; NEUT A 14.3. cp 04/18 23:25 Order name: CMP; Complete Time: 01:24 cp 04/19 01:25 Interpretation: Normal except: GLUC 125; BUN 25; AST 85; ALK 145. cp 04/18 23:25 Order name: Lipase; Complete Time: 01:24 cp 04/18 23:25 Order name: Urinalysis w/ reflexes cp 04/19 04:59 Order name: Lactate w/ 2H reflex if indic. EDMS 04/19 04:59 Order name: Magnesium EDMS 04/19 04:59 Order name: Phosphorus EDMS 04/19 04:59 Order name: Protime (+INR) EDMS 04/19 04:59 Order name: PTT, Activated Partial Thromb EDMS 04/19 04:59 Order name: Urinalysis w/ reflexes EDMS 04/19 04:59 Order name: Basic Metabolic Panel EDMS 04/19 04:59 Order name: Basic Metabolic Panel EDMS 04/19 04:59 Order name: CBC with Automated Diff EDMS 04/19 04:59 Order name: CBC with Automated Diff EDMS 04/19 00:12 Order name: CT Abd/Pelvis - IV Contrast Only cp 04/18 23:25 Order name: IV Saline Lock; Complete Time: 23:28 cp 04/18 23:25 Order name: Labs collected and sent; Complete Time: 23:28 cp Administered Medications: 00:30 Drug: Ondansetron IVP 4 mg IVP once; over 2 minutes Route: IVP; Site: right antecubital;ha1 06:28 Follow up: Response: No adverse reaction ha1 00:32 Drug: Ketorolac IVP 15 mg IVP once Route: IVP; Site: right antecubital; ha1 06:27 Follow up: Response: No adverse reaction ha1 00:34 Drug: Famotidine IVP 20 mg IVP once; dilute with 10 mL 0.9% NaCl; give over 2 minutes ha1 Route: IVP; Site: right antecubital; 06:28 Follow up: Response: No adverse reaction ha1 00:36 Drug: NS 0.9% IV 1000 ml IV at 1 bolus Per protocol; to be given as a bolus over 60 ha1 minutes Route: IV; Rate: 1 bolus; Site: right antecubital; 06:28 Follow up: IV Status: Completed infusion ha1 Disposition: 04:14 Co-signature as Attending Physician, Ochoa Kitchen MD I agree with the assessment sp4 and plan of care. I reviewed the patient's care provided by Advanced Practice Provider \T\ agree w/ the diagnosis \T\ care plan. I personally saw the pt \T\ performed a substantive portion of the visit, incldng all aspects of the (History/Exam/Medical Decision Making). Disposition Summary: 04/19/24 04:18 Hospitalization Ordered Notes: Hospitalization Status: Observation sp4 Provider: Prince echo Moreau Location: Telemetry/MedSur (observation) sp4 Condition: Stable sp4 Problem: new sp4 Symptoms: have improved sp4 Bed/Room Type: Standard sp4 Room Assignment: 403(03/01/25 05:24) Diagnosis - Unspecified acute appendicitis sp4 Forms: - Medication Reconciliation Form sp4 - SBAR form sp4 - Leadership Thank You Letter sp4 Signatures: Dispatcher [employer] EDMS Alyse King RN RN Derek Mccullough PA PA cp Ayala, Heidy, RN RN ha1 Ochoa Kitchen MD MD sp4 Corrections: (The following items were deleted from the chart) 04/18 23:25 23:25 CBC+H.LAB.BRZ ordered. EDMS EDMS 23:25 23:25 COMPREHENSIVE METABOLIC PANEL+C.LAB.BRZ ordered. EDMS EDMS 23:25 23:25 LIPASE+C.LAB.BRZ ordered. EDMS EDMS 23:25 23:25 Urinalysis+U.LAB.BRZ ordered. EDMS EDMS 04/19 05:24 04:18 sp4
[2024-04-19] MEDS ORDERED: ONDANSETRON 4 MG/2 ML VIAL IV PRN (04:55)
--- NOTE | 2024-04-19 05:07 | P.HP ---
Certification for Inpatient Patient admitted to: Observation With expected LOS: <2 Midnights Practitioner: I am a practitioner with admitting privileges, knowledge of patient current condition, hospital course, and medical plan of care. Services: Services provided to patient in accordance with Admission requirements found in Title 42 Section 412.3 of the Code of Federal Regulations Patient History Date of Service: 04/19/24 Reason for admission: abdominal pain History of Present Illness: Patient is a 29 year old male with a past medical history of hypertension. He presented to the ER complaining of an acutely worsening epigastric abdominal pain that radiated to his right lower quadrant. Associated symptoms include nausea and chills. Patient was still to have a bowel movement that was nonbloody. Upon arrival in the ER, he was hypotensive with SBP of 100. He states that his systolic blood pressure usually runs in the 130s and 140s. CT abdomen and pelvis showing mild acute appendicitis. He is being admitted for surgical evaluation. Dr. Mitchell was consulted by ER. Allergies No Known Drug Allergies Allergy (Unverified 08/27/14 14:17) Unknown Physical Examination - Physical Exam General: In no apparent distress, Mild distress HEENT: Atraumatic, Normocephalic Respiratory: Clear to auscultation bilaterally, Normal air movement Cardiovascular: No edema, Normal pulses, Regular rate/rhythm, Normal S1 S2 Gastrointestinal: Tenderness (Right lower quadrant tenderness) Musculoskeletal: No clubbing, No swelling, No contractures, No erythema, No tenderness - Studies Laboratory Data (last 24 hrs) 04/18/24 04/18/24 23:25 23:25 WBC 16.90 H Hgb 15.0 Hct 44.4 Plt Count 208 Sodium 137 Potassium 4.1 BUN 25 H Creatinine 1.07 Glucose 125 H Total Bilirubin 0.4 AST 85 H ALT 54 Alkaline Phosphatase 145 H Lipase 39 Assessment and Plan - Problems (Diagnosis) (1) Acute appendicitis Current Visit: Yes Status: Acute (2) Leukocytosis Current Visit: Yes Status: Acute - Plan Assessment Patient is a 29 year old male who is being admitted for acute appendicitis after he presented with abdominal pain. He has a WBC of 16k, otherwise not septic. CT A/P shows acute appencitis. Acute appendicitis Leukocytosis PLAN: Will admit under observation IV fluid infusion and Zosyn IV PPI Multimodal pain regimen NPO for appendectomy Surgery consulted Will hold off anti-HTN for now since he was hypotensive on arrival - Advance Directives Does patient have a Living Will: No Does patient have a Durable POA for Healthcare: No
[2024-04-19] MEDS ORDERED: SODIUM CHLORIDE 0.9% 10ML INJ IV PRN (05:30)
[2024-04-19 06:31] LABS: Specific Gravity > 1.030 (1.005-1.030); Urine Bilirubin NEGATIVE (Negative); Urine Blood Negative (Negative); Urine Clarity Clear (Clear); Urine Color Light-Yellow (Yellow); Urine Glucose NEGATIVE (Negative); Urine Ketones TRACE (Negative); Urine Microscopic Reflex YN NO UMIC; Urine Nitrite NEGATIVE (Negative); Urine Protein NEGATIVE (Negative); Urine Urobilinogen Normal (Normal); Urine pH 5.5 (5.0-7.0)
[2024-04-19 06:40] VITALS: BMI 27.1
[2024-04-19 07:20] LABS: Magnesium 2.1 mg/dL (1.6-2.4)
[2024-04-19 07:31] LABS: PT Prothrombin Time 12.4 SECONDS (10.0-13.0); PTT, Activated Partial Thromb 27.7 SECONDS (24.3-36.9); Protime INR 1.09
[2024-04-19] MEDS: PIPER TAZO 3.375 GM in NA CHLORIDE 0.9% 100 ML IV SCH (07:36)
[2024-04-19] MEDS: NA CHLORIDE 0.9% 1,000 ML IV SCH (07:36)
[2024-04-19] MEDS: PANTOPRAZOLE 40 MG INJ IVP SCH (07:36)
[2024-04-19] MEDS: HYDROMORPHONE HCL 1 MG/ML INJ IV PRN (07:36)
[2024-04-19] MEDS ORDERED: SUCCINYLCHOLINE 20 MG/ML (10 ML) IV ONE (09:29)
[2024-04-19] MEDS ORDERED: SUGAMMADEX SODIUM 200 MG/2 ML VIAL IV ONE (09:29)
[2024-04-19] MEDS ORDERED: propofoL 200 MG/20 ML VIAL IV ONE (09:43)
[2024-04-19] MEDS ORDERED: LIDOCAINE 2% MPF 5 ML VIAL ONE (09:44)
[2024-04-19] MEDS ORDERED: FENTANYL CITR 100 MCG/2 ML ONE (09:44)
[2024-04-19] MEDS ORDERED: ROCURONIUM 50 MG/5 ML VIAL IV ONE (09:44)
[2024-04-19] MEDS ORDERED: MIDAZOLAM HCL 2 MG/2 ML INJ ONE (09:44)
[2024-04-19] MEDS: LIDOCAINE HCL/EPINEPHRINE 20 ML MDV ONE (10:59)
[2024-04-19] MEDS: NA CHLORIDE 0.9% 1,000 ML ONE (11:10)
--- NOTE | 2024-04-19 11:25 | P.OP ---
Preoperative diagnosis: Acute Non-Perforated Appendicitis Postoperative diagnosis: Acute Non-Perforated Appendicitis Primary procedure: Laparoscopic Appendectomy Anesthesia: GETA + Local Estimated blood loss: <5cc Specimen: Vermiform Appendix Findings: Acute Non-Perforated Appendicitis Complications: None Transferred to: Recovery Room Condition: Good
[2024-04-19] MEDS: MEPERIDINE HCL 25 MG/ML SYR ONE (11:43)
[2024-04-19] MEDS: HYDROMORPHONE HCL 1 MG/ML INJ ONE (11:49)
--- NOTE | 2024-04-19 12:34 | OP ---
Date of Procedure: 04/19/2024 Surgeon: Joce Duarte MD, Preoperative Diagnosis: Acute nonperforated appendicitis. Postoperative Diagnosis: Acute nonperforated appendicitis. Procedure Performed: Laparoscopic appendectomy. Anesthesia: General endotracheal plus local with 1% lidocaine with epinephrine. Estimated Blood Loss: 5 cc. Specimen: Vermiform appendix. Findings: Acute nonperforated appendicitis. Complications: None. Disposition: The patient transferred to recovery room in good condition. Procedure In Detail: After informed consent was obtained, patient was brought to the operating room, prepped and draped in the usual sterile fashion, after adequate anesthesia was achieved. I anesthet ized an area in the infraumbilical position down to subcutaneous tissues. A 5-mm 0-degree optical tr ocar was introduced in the abdomen without incident or complication. Insufflation was obtained to 15 mmHg, at this time. There was no injury to vital structures upon entry into the abdomen. Two addit ional trocars were placed, one in the right lower quadrant, one in the supraumbilical position. Both of these were 5 mm trocar placed under direct visualization without incident or complication. The s ubumbilical was then upsized to a 12 mm under direct visualization without incident or complication. The patient was positioned head down right side up position. Ratcheted grasper was used to grasp th e patient's appendix and dissected out to allow for a mesenteric window to be created using [place] retractor. Ultimately, Endo-TITUS 45 purple load was fired across the base of the appendix with good a pproximation of tissue, at this point. There was a little bit of bleeding from the staple line, and as such, 2 titanium Endo clips were placed on this area with good hemostasis, at this point. I then used the LigaSure device to take down the mesoappendix without incident or complication. At this poi nt, the appendix was sent off for pathologic examination. The abdomen was reinsufflated, at this poi nt. The area was copiously irrigated multiple times until completely clear. The patient was positio addie back in neutral position. I suctioned out the remaining effluent. At this point, the 12 mm troc ar site was closed using a Jorge-Darius suture passer with 0 Vicryl in interrupted fashion with go od approximation of tissues. The air was desufflated under direct visualization without incident or complication. All skin edges were then copiously irrigated, and closed with a 4-0 Monocryl in a runn ing fashion. Dermabond was placed over top. The patient tolerated the procedure without incident or complication and transferred to PACU in good condition. All counts were correct at the end of the c ase. SHELIA/WALDEMAR Voice ID: [id number] Report ID: [id number]
--- NOTE | 2024-04-19 13:21 | P.DS ---
Admission Date: 04/19/24 Discharge Date: 04/19/24 Disposition: DC HOME/HOME HEALTH CARE Discharge Condition: GOOD Reason for Admission: abdominal pain Hospital Course: Patient is a 29 year old male who was admitted for acute appendicitis after he presented with abdominal pain. WBC of 16k, CT A/P shows acute appencitis. 1. Acute appendicitis s/p laproscopic appendectomy 2. Leukocytosis secondary to #1 3. HTN: home meds 29-year-old patient admitted with appendicitis, had laparoscopic appendectomy, I discussed with surgical team, they cleared the patient to be discharged, when I see the patient this afternoon, he is just back from operating room, he is still in pain but the pain seems to be reasonably controlled, I discussed with the patient about discharge, he is okay to go home as long as he tolerates diet and pain is controlled, I discussed with the nursing staff at bedside, if he tolerates diet and pain controlled, he will be discharged this afternoon, if not he will go home tomorrow morning. Subjective: No chest pain or shortness of breath. No nausea or vomiting. c/o abdominal pain. No obvious bleeding. Looks comfortable in the bed. Objective: General appearance: Alert and comfortable CVS: Normal S1 and S2 Lungs: Clear to auscultation bilaterally Abdomen: Soft, bowel sounds present, post op tenderness expected, incisions intact Extremities: No pedal edema Vital Signs/Physical Exam: Temp Pulse Resp BP Pulse Ox 97.4 F 60 18 106/49 L 98 04/19/24 12:05 04/19/24 12:05 04/19/24 12:05 04/19/24 12:05 04/19/24 12:00 Laboratory Data at Discharge: WBC 16.90 thou/uL (4.3-10.9) H 04/18/24 23:25 Hgb 15.0 g/dL (13.6-17.9) 04/18/24 23: Hct 44.4 % (39.6-49.0) 04/18/24 23: Plt Count 208 thou/uL (152-406) 04/18/24 23:25 PT 12.4 SECONDS (10.0-13.0) 04/19/24 07:04 INR 1.09 04/19/24 07:04 APTT 27.7 SECONDS (24.3-36.9) 04/19/24 07:04 Sodium 137 mEq/L (136-145) 04/18/24 23:25 Potassium 4.1 mEq/L (3.5-5.1) 04/18/24 23:25 BUN 25 mg/dL (7-18) H 04/18/24 23:25 Creatinine 1.07 mg/dL (0.70-1.30) 04/18/24 23:25 Glucose 125 mg/dL (74-106) H 04/18/24 23:25 Phosphorus 3.0 mg/dL (2.5-4.9) 04/18/24 23:25 Magnesium 2.1 mg/dL (1.6-2.4) 04/18/24 23:25 Total Bilirubin 0.4 mg/dL (0.2-1.0) 04/18/24 23:25 AST 85 U/L (15-37) H 04/18/24 23:25 ALT 54 U/L (16-61) 04/18/24 23:25 Alkaline Phosphatase 145 U/L (45-117) H 04/18/24 23:25 Lipase 39 U/L (13-75) 04/18/24 23:25 Home Medications: Hydrocodone 5/APAP 325 [[place] 5/325*] 1 tab PO Q6H PRN #10 tab 04/19/24 Lisinopril [Zestril] 10 mg PO DAILY 04/19/24 New Medications: Hydrocodone 5/APAP 325 [[place] 5/325*] 1 tab PO Q6H PRN #10 tab PRN Reason: Pain Scale 5-7 (Moderate) Diet: Regular Activity: No lifting more than 10 lbs Followup: Joce Duarte MD [ACTIVE - CAN ADMIT] - NONE,NONE [Primary Care Provider] - 1 Week (f/u with PCP in 1 week with CBC and CMP)
--- NOTE | 2024-04-19 13:23 | CON ---
Date of Consultation: 04/19/2024 Brief Hpi: The patient is a 29-year-old male who presents with complaints of periumbilical with radiation down the right lower quadrant abdominal pain beginning yesterday while at work. He st ates that he thought it was a simple abdominal cramp which got progressively worse while he was work. It continued to get worse and localized to the right lower quadrant, at which point he told his aleksander s he needs to come here. Ultimately came here with worsening symptoms, it got progressively worse. The pain began to radiate to the right lower quadrant more significantly and ultimately localized in that area. It was very tender, aggravated by pressure, walking, movement, and as such, he came to [facility] emergency room with the above-stated complaints. He denies sick contacts. No recent travel. No n ew food exposures. Past Medical History: Significant for hypertension. Past Surgical History: Negative. Home Medications: Include lisinopril. Allergies: NO KNOWN DRUG ALLERGIES. Social History: He denies smoking, alcohol, recreational drug use. Review of Systems: 10 point review of systems other than HPI denies. Physical Examination: At time of examination: General: He is awake, alert, oriented. Psychiatric: Appropriate, conversive. HEENT: Normocephalic. Sclerae anicteric. Mucous membranes are moist. Oropharynx clear. Neck: Supple without JVD. Chest: Normal expansion, excursion. Cardiovascular: Regular rate and rhythm. Pulmonary: Clear to auscultation bilaterally. Abdomen: Soft with positive right lower quadrant guarding and focal peritonitis at McBurney point. There is voluntary guarding and rebound in this area. Extremities: Positive psoas sign. Otherwise no clubbing, cyanosis, edema. Skin: Warm and dry. Laboratory Data: White blood cell count 16.9, hemoglobin is 15.0, hematocrit of 44.4, platelet count was 208. PT 12.4, INR 1.09, PTT is 27.7. Sodium 137, potassium 4.1, chloride was 107, carbon dioxi de 26, BUN 25, creatinine 1.07, glucose is 125. Lactic acid 1.3. Phosphorus 3.0, magnesium 2 1. To latonya bilirubin 0.4, AST 85, ALT 54, alkaline phosphatase 145, lipase 39. His UA is essentially negati ve. He had CT scan of the abdomen and pelvis which was officially read as suspect mild acute appendi citis. The appendix is borderline diameter 9 mm. There is pain surrounding inflammatory changes. Assessment And Plan: This is a 29-year-old male who comes in with signs and symptoms of early nonper forated appendicitis. 1. IV fluid hydration. 2. Antibiotic coverage. 3. I explained the risks, benefits, and alternatives of laparoscopic possible open appendectomy inclu ding, but not limited to bleeding, infection, damage to surrounding tissues, need for further operati ve procedures. The patient displayed understanding of above stated plan, agreed to proceed as indica guillermo. Thank you for this interesting consult. SHELIA/WALDEMAR Voice ID: [id number] Report ID: [id number]
[2024-04-19 20:17] VITALS: BP 130/62; TEMP 97.9
[2024-04-19 21:38] VITALS: O2SAT 98
[2024-04-19] MEDS: HYDROCODONE/APAP 5/325 MG TAB PO PRN (22:34)
== END 2024-04-19 23:40 | disposition home health service (06) ==
LOC: ER 22:46 → ERHOLD 04-19 04:55 → 4TH 04-19 06:12
PROVIDERS: ADMIT Internal Medicine; ATTEND Hospitalist
PROC: 0DTJ4ZZ Resection of Appendix, Percutaneous Endoscopic Approach (ICD-10-PCS; principal; 2024-04-19 10:00)
DX: K35.80 Unspecified acute appendicitis (principal); D72.829 Elevated white blood cell count, unspecified; I10 Essential (primary) hypertension
CPT/HCPCS: 96361; 85025; 36415; 83735; 84100; 85610; 83605; 88304; 85730; 81003; 83690; 80053; 74177; 96375; 96374; 99285; 44970; Q9967; J2704; J2543 ×2; J2003; J2470; J2250; J3010; J2175; J1171 ×4; J2405 ×2; G0378 ×3; J7030 ×4; A4314

== ENCOUNTER 2024-12-06 12:32 | Emergency (ER) | payer BC ==
--- OUTSIDE RECORDS SUMMARY | 2024-12-06 12:36 | XMS REPORT | Continuity of Care Document ---
Author Name Unknown Address [address] [facility] [address] [place] [address] Organization [facility] [place] Address [address] [facility] [address] [place] [address] Care Team Providers Care Cloth Grader Supervisor Name Role Phone ROSALIE HIDALGO Attending Clinician Unavailab le LAB90 Attending Clinician Unavailable SUGAR TROTTER Attending Clinician Unavailable HANNAH BRENNAN Attending Clinician Unavailable Sugar Garcia Attending Clinician [phone] Payers Payer Name Policy Type Policy Number Effective Date Expirati on Date Source [facility] 2 [id number] 2023 00:00:00 Problems Condition Name Condition Details [...] level Disease Active 2021-02 00:00: 00 Felipa Douglasa david Vitamin D deficiency Vitamin D deficiency Disease Active 2021-02 00:00: 00 Felipa Harry Externa l Hypertensi on Hypertensi on Disease Active 2020-02 0-04 00:00: 00 Felipa Emerson Overweight Overweight Disease Active 2020-02 0 00:00: 00 Felipa Emerson Class 1 obesity due to excess calories without serious comorbidit y with body mass index (BMI) of 33.0 to 33.9 in adult Class 1 obesity due to excess calories without serious comorbidit y with body mass index (BMI) of 33.0 to 33.9 in adult Disease Active 2020-02 0 00:00: 00 Felipa Emerson - Misaela l Primary hypertensi on Primary hypertensi on Disease Active 2020-02 00:00: 00 Felipa Emerson - Misaela l Class 1 obesity due to excess calories without serious comorbidit y with body mass index (BMI) of 33.0 to 33.9 in adult Class 1 obesity due to excess calories without serious comorbidit y with body mass index (BMI) of 33.0 to 33.9 in adult Disease Active 2020-02 0 00:00: 00 Felipa Emerson - Misaela l Social History Social Habit Start Date Stop Date Quantity Comments Source Sexual orientation K germán Emerson - External History of Occupation Felipa Emerson - External Exposure to SARS-CoV-2 (event) Not sure Felipa kyle History SDOH Alcohol Frequency Felipa jessica - External History SDOH Alcohol Std Drinks Felipa kyle - External History SDOH Alcohol Binge Felipa Emerson - External Alcoholic beverage intake 2024-04-24 00:00:00 2024-04-24 00:00:00 .29 /d Felipa Emerson - External History of Social function 2023-11-23 00:00:00 2023-11-23 00:00:00 Felipa Emerson - External Alcohol intake 2022-02-15 00:00:00 2022-02-15 00:00:00 .29 /d Felipa Emerson - External Tobacco use and exposure 2022-01-30 00:00:00 2022-01-30 00:00:00 Smokeless tobacco non-user Felipa Emerson - External Alcohol Comment 2022-01-30 00:00:00 2022-01-30 00:00:00 moderately Felipa Emerson - External Education 2022-01-30 00:00:00 2022-01-30 00:00:00 17 Felipa Harry External Sex 2020-05-18 17:33:04 2020-05-18 17:33:04 Male (finding) Felipa Haile Sex assigned at 1995 00:00:00 1995 00:00:00 M Felipa Herediasaroj Kamryn Haile Smoking Status Start Date Stop Date Source Never smoked tobacco Felipa Idania Harry Mic Medications Ordered Medication Name Filled Medication Name Start Date Stop Date Current Medication? Ordering Clinician Indication Dosage Frequency Signature (SIG) Comments Components Source Omeprazole 20 MG oral Delayed Release Capsule 04-24 10:37: 54 04-24 00:00 :00 No 20mg QD Take 1 capsule (20 mg total) by mouth daily as needed. Felipa hernandez Omeprazole 20 MG oral Delayed Release Capsule 2023-02 10:08: 56 Yes 20mg QD Take 1 capsule (20 mg total) by mouth daily as needed. Felipa hernandez Lisinopril 10 MG oral Tablet 2023-02 00:00: 00 Yes [id number] 10mg QD Take 1 tablet (10 mg total) by mouth daily. Felipa hernandez Lisinopril 10 MG oral Tablet 08-30 00:00: 00 11-22 00:00 :00 No [id number] take 1 tablet by mouth every day Felipa hernandez Omeprazole 20 MG oral Delayed Release Capsule 2021-02 11:20: 17 Yes 20mg QD Take 20 mg by mouth daily as needed Felipa hernandez Benzonatate (Tessalon Perles) 100 MG oral Capsule 2021-02 00:00: 00 11-22 00:00 :00 No [id number] 100mg Q.[id number] 3D Take 1 capsule (100 mg total) by mouth 3 times daily as needed for cough Felipa hernandez Albuterol HFA 108 (90 Base) MCG/ACT IN AERS 2021-02 00:00: 00 11-22 00:00 :00 No [id number] 2{puff} Q.25D Inhale 2 puffs into the lungs every 6 hours as needed for wheezing or shortness of breath Felipa hernandez Oseltamivir Phosphate 75 MG oral Capsule 2021-02 00:00: 00 02-21 05:59 :00 No [id number] 75mg Take 1 capsule (75 mg total) by mouth 2 times daily for 5 days Felipa hernandez Azithromyci n 250 MG oral Tablet 2021-02 00:00: 00 02-21 05:59 :00 No [id number] Take 2 tablets by mouth on day 1 then 1 tablet by mouth daily for 4 days thereafter . Felipa hernandez Cholecalcif mike (Vitamin D3) 20 MCG (800 UNIT) oral Tablet 2021-02 00:00: 00 Yes [id number] 1{tbl} Take 1 tablet by mouth daily Felipa hernandez Cholecalcif mike (Vitamin D3) 20 MCG (800 UNIT) oral Tablet 2021-02 00:00: 00 04-24 00:00 :00 No [id number] 1{tbl} QD Take 1 tablet by mouth daily Felipa hernandez Omeprazole 20 MG oral Delayed Release Capsule 2021-02 09:03: 57 Yes 20mg QD Take 20 mg by mouth daily as needed Felipa hernandez Lisinopril 10 MG oral Tablet 2021-02 00:00: 00 Yes [id number] TAKE 1 TABLET BY MOUTH EVERY DAY Felipa hernandez Lisinopril 10 MG oral Tablet 2020-02 0 00:00: 00 Yes [id number] TAKE 1 TABLET BY MOUTH EVERY DAY Felipa Emerson Vitamin D, Ergocalcife rol, 1.25 MG (34305 UT) oral Capsule 2020-0212 00:00: 00 Yes [id number] 67105M Take 1 capsule (50,000 units total) by mouth once a week Felipa Emerson Ceftriaxone Sodium (ROCEPHIN) 1 g 2020-02 0-11 22:00: 00 11-29 22:00 :00 No [id number] 1g Felipa Emerson Doxycycline Hyclate 100 MG oral Tablet 2020-02 00:00: 00 01-30 00:00 :00 No [id number] 100mg Take 1 tablet (100 mg total) by mouth 2 times daily Felipa Emerson - Externa l Azithromyci n 1 g oral Pack 2020-02 00:00: 00 11-30 04:59 :00 No [id number] 1g Take 1 packet (1 g total) by mouth once for 1 dose Felipa Emerson Lisinopril 10 MG oral Tablet 2020-02 00:00: 00 Yes [id number] 10mg Take 1 tablet (10 mg total) by mouth daily Felipa Emerson Vital Signs Vital Name Observation Time Observation Value Comments S ource Heart rate 2024-04-24 16:36:00 60 /min Taye Emerson - External Body temperature 2024-04-24 16:36:00 36.44 Citlalli Felipa Emerson - External Respiratory rate 2024-04-24 16:36:00 16 /min Felipa Emerson - External Body height 2024-04-24 16:36:00 188 cm Clarisa Emerson - External Body weight 2024-04-24 16:36:00 94.802 kg Clarisa Emerson - External BMI 2024-04-24 16:36:00 26.83 kg/m2 Clarisa page Seybold - External Systolic blood pressure 2024-04-24 16:36:00 126 mm[Hg] Felipa Duran ld - External Diastolic blood pressure 2024-04-24 16:36:00 71 mm[Hg] Felipa Duran ld - External Systolic blood pressure 2023-11-23 15:10:00 126 mm[Hg] Felipa Duran ld - External Diastolic blood pressure 2023-11-23 15:10:00 82 mm[Hg] Felipa jackson - External Heart rate 2023-11-23 15:10:00 59 /min Taye Emerson - External Body temperature 2023-11-23 15:10:00 36.06 Citlalli Felipa Emerson - External Respiratory rate 2023-11-23 15:10:00 18 /min Felipa Emerson - External Body height 2023-11-23 15:10:00 188 cm Clarisa ey Seybold - External Body weight 2023-11-23 15:10:00 95.709 kg Clarisa ey Seybold - External BMI 2023-11-23 15:10:00 27.09 kg/m2 Clarisa ey Seybold - External Oxygen saturation in Arterial blood by Pulse oximetry 2023-11-23 15:10:00 99 /min Felipa Seybo ld - External Systolic blood pressure 2022-02-15 17:15:00 128 mm[Hg] Felipa Seybo ld - External Diastolic blood pressure 2022-02-15 17:15:00 76 mm[Hg] Felipa Seybo ld - External Heart rate 2022-02-15 17:15:00 95 /min Kelse y Seybold - External Body temperature 2022-02-15 17:15:00 36.78 Citlalli Felipa Seybold - External Respiratory rate 2022-02-15 17:15:00 16 /min Felipa Seybold - External Body height 2022-02-15 17:15:00 188 cm Clarisa ey Seybold - External Body weight 2022-02-15 17:15:00 116.121 kg Clarisa ey Seybold - External BMI 2022-02-15 17:15:00 32.87 kg/m2 Clarisa ey Seybold - External Body temperature 2022-01-30 13:55:00 [...] ld Heart rate 2020-11-22 20:24:00 92 /min Kelse y Seybold Body temperature 2020-11-22 20:24:00 37.39 Citlalli Felipa Seybold Respiratory rate 2020-11-22 20:24:00 16 /min Felipa Seybold Body height 2020-11-22 20:24:00 188 cm Clarisa ey Seybold Body weight 2020-11-22 20:24:00 111.585 kg Clarisa ey Seybold BMI 2020-11-22 20:24:00 31.58 kg/m2 Clarisa ey Seybold Systolic blood pressure 2020-11-22 20:24:00 172 mm[Hg] Felipa Seybo ld Diastolic blood pressure 2020-11-22 20:24:00 108 mm[Hg] Felipa Seybo ld Heart rate 2020-11-22 20:24:00 92 /min Kelse y Seybold Body temperature 2020-11-22 20:24:00 37.39 Citlalli Felipa Seybold Respiratory rate 2020-11-22 20:24:00 16 /min Felipa Idania Body height 2020-11-22 20:24:00 188 cm Clarisa page Sejanettedoni Body weight 2020-11-22 20:24:00 111.585 kg Clarisa page Renitadoni BMI 2020-11-22 20:24:00 31.58 kg/m2 Clarisa camilo Emerson Procedures Procedure Date / Time Performed Performing Clinician Source LS RAPID STREP ASSAY-LAB TEST 2022-02-15 17:49:00 Hannah Brennan - External LS RAPID FLU ASSAY-LAB TEST 2022-02-15 17:49:00 Hannah Brennan - External WRITTEN AUTHORIZATION 2020-11-22 21:28:00 Sugar Trotter HGB A1C WITH MBG ESTIMATION 2020-11-22 21:28:00 Sugar Trotter GGT 2020-11-22 21:28:00 Sugar Trotter S eybold CMP14+CBC/D/PLT+TSH W/RFLX 2020-11-22 21:28:00 Sugar Trotter Encounters Start Date/Time End Date/Time Encounter Type Admission Type Attending [facility] Care Facility Care Department Encounter ID Source 2024-06-14 00:00:00 2024-06-14 00:00:00 Outpatient ROSALIE HIDALGO [id number] Felipa Emerson 2024-04-30 14:30:00 2024-04-30 14:30:00 Outpatient ROSALIE HIDALGO [id number] Felipa Emerson 2024-04-24 11:15:00 2024-04-24 11:15:00 Outpatient LAB90 FELIPA DAVID [id number] Felipa Emerson 2024-04-24 10:30:00 2024-04-24 10:30:00 Outpatient ROSALIE HIDALGO [id number] Felipa Emerson 2023-11-23 10:45:00 2023-11-23 10:45:00 Outpatient LAB90 FELIPA DAVID [id number] Felipa saroj 2023-11-23 10:00:00 2023-11-23 10:00:00 Outpatient ROSALIE HIDALGOGALLO DAVID [id number] [facility] 2023-11-20 00:00:00 2023-11-20 00:00:00 Outpatient HUNDL, SUGAR FELIPA DAVID [id number] Felipa Seybold 2023-10-05 00:00:00 2023-10-05 00:00:00 Outpatient HUNDL, SUGAR FELIPA DAVID [id number] Felipa Seybold 2023-08-31 00:00:00 2023-08-31 00:00:00 Outpatient HUNDL, SUGAR FELIPA DAVID [id number] [facility] 2022-11-04 00:00:00 2022-11-04 00:00:00 Outpatient HUNDL, SUGAR FELIPA DAVID [id number] [facility] 2022-10-10 15:30:00 2022-10-10 15:30:00 Outpatient PREZAS, HANNAH FELIPA DAVID [id number] [facility] 2022-09-04 13:45:00 2022-09-04 13:45:00 Outpatient PREZAS, HANNAH FELIPA DAVID [id number] Felipa Seybold 2022-07-31 08:00:00 2022-07-31 08:00:00 Outpatient PREZAS, HANNAH FELIPA DAVID [id number] Felipa Seybold 2022-02-15 11:45:00 2022-02-15 11:45:00 Outpatient PREZAS, HANNAH FELIPA DAVID [id number] Felipa Seybold 2022-02-15 00:00:00 2022-02-15 00:00:00 Outpatient PREZAS, HANNAH FELIPA DAVID [id number] Felipa Seybold 2022-02-01 00:00:00 2022-02-01 00:00:00 Outpatient PREZAS, HANNAH FELIPA DAVID [id number] Felipa Seybold 2022-01-31 00:00:00 2022-01-31 00:00:00 Outpatient PREZAS, HANNAH DAVID [id number] Felipa Seybold 2022-01-30 09:15:00 2022-01-30 09:15:00 Outpatient LAB90 FELIPA FELIPA [id number] [facility] 2022-01-30 08:00:00 2022-01-30 08:00:00 Outpatient HANNAH BRENNAN FELIPA [id number] [facility] 2022-01-21 00:00:00 2022-01-21 00:00:00 Outpatient SUGAR TROTTER FELIPA DAVID [id number] Felipa [facility] 2021-01-24 00:00:00 2021-01-24 00:00:00 Outpatient SUGAR TROTTER FELIPA DAVID [id number] [facility] 2021-01-20 00:00:00 2021-01-20 00:00:00 Outpatient SUGAR TROTTERGALLO DAVID [id number] Felipa [facility] 2020-12-20 16:15:00 2020-12-20 16:15:00 Outpatient LAB90 FELIPA FELIPA [id number] Felipa [facility] 2020-12-20 15:41:53 2020-12-20 16:11:53 Office Visit Sugar Trotter [id number] 2020-12-20 15:41:53 2020-12-20 16:11:53 Office Visit Sugar Trotter [id number] [id number] Felipa [facility] 2020-11-30 00:00:00 2020-11-30 00:00:00 Outpatient SUGAR TROTTER FELIPA DAVID [id number] Felipa [facility] 2020-11-29 17:10:00 2020-11-29 17:10:00 [facility] LAB90 [facility] [id number] [facility]-11-29 16:06:57 2020-11-29 16:36:57 Office Visit Sugar Trotter [id number] 2020-11-29 16:06:57 2020-11-29 16:36:57 Office Visit Sugar Trotter [id number] [id number] Felipa Emerson 2020-11-24 00:00:00 2020-11-24 00:00:00 Outpatient SUGAR TROTTER FELIPA [id number] Felipa Emerson 2020-11-23 00:00:00 2020-11-23 00:00:00 Outpatient SUGAR TROTTER FELIPA DAVID [id number] Felipa Emerson 2020-11-22 16:25:00 2020-11-22 16:25:00 Outpatient [facility] FELIPA DAVID [id number] Felipa Herediajanettedoni 2020-11-22 15:16:09 2020-11-22 15:46:09 Office Visit Sugar Trotter [id number] [id number] [id number] Felipa Herediajanettedoni 2020-11-22 15:16:09 2020-11-22 15:46:09 Office Visit Sugar Trotter [id number] [id number] [id number] Results Test Description Test Time Test Comments Results Result Co mments Source Felipa EmersonWRITTEN [id number] 22:39:00WRITTEN AUTHORIZATIONComment: Written Authorization Received.Authorization received from SUGAR TROTTER MD [id number] by Valentina Up [facility] PARASFelipa [id number]+CBC/D/PLT+TSH W/[id number] 11:11:00* Test Item Value Reference Range Interpretation Comme nts GLUCOSE, SERUM (test code = 2345-7) 91 mg/dL 65-99 BUN (test code = 3094-0) 13 mg/dL 6-20 CREATININE, SERUM (test code = 2160-0) 1.07 mg/dL 0.76-1.27 EGFR IF NONAFRICN AM (test code = 10598-2) 97 mL/min/1.73 >59 EGFR IF AFRICN AM (test code = 90281-0) 112 mL/min/1.73 >59 [facility] currently reports eGFR [...] mmol/L 20-29 CALCIUM, SERUM (test code = 25994-5) 9.7 mg/dL 8.7-10.2 PROTEIN, TOTAL, SERUM (test code = 2885-2) 7.6 g/dL 6.0-8.5 ALBUMIN, SERUM (test code = 1751-7) 5.0 g/dL 4.1-5.2 GLOBULIN, TOTAL (test code = 63052-4) 2.6 g/dL 1.5-4.5 A/G RATIO (test code [...] result as normal/abnormal. TSH (test code = 89227-0) See_Comment [Automated message] The system which generated [...] as normal/abnormal. IMMATURE GRANULOCYTES (test code = 77102-2) 0 % Not Estab. IMMATURE GRANS (ABS) (test code = 83761-4) See_Comment [Automated message] The system which generated this result transmitted reference range: 0.0 - 0.1 x10E3/uL. The reference range was not used to interpret this result as normal/abnormal. GALINDO (test code = GALINDO) [facility] results reported in Eastern Time. [facility] Clinical Information:SRC :Blood, venous*Venipunc ture ? [facility] Source of Specimen:Blood, venous*Venipunc Lab Interpretation (test code = 33116-4) Abnormal Felipa HerediayboldHGB A1C WITH MBG [id number] 11:11:00* Test Item Value Reference Range Interpretation Comme nts HEMOGLOBIN A1C (test code = 4548-4) 5.7 % 4.8-5.6 H . Prediabetes: 5.7 - 6.4 Diabetes: >6.4 Glycemic control for adults with diabetes: <7.0 ESTIM. AVG GLU (EAG) (test code = 35876-5) 117 mg/dL GALINDO (test code = GALINDO) [facility] results reported in Eastern Time. [facility] Clinical Information:[facility] Source of Specimen:Blood, venous*Venipunc Lab Interpretation (test code = 04075-7) Abnormal Felipa Emerson
[2024-12-06] MEDS ORDERED: LIDOCAINE 1% 20 ML MDV ONE (12:39)
[2024-12-06] MEDS ORDERED: BUPIVACAINE 0.25% PF 10 ML VIAL ONE (12:41)
[2024-12-06] MEDS ORDERED: BUPIVACAINE 0.5% PF 10 ML VIAL ONE (12:41)
[2024-12-06] MEDS ORDERED: FENTANYL CITR 100 MCG/2 ML ONE ×2 (12:50→14:40)
[2024-12-06] MEDS ORDERED: ONDANSETRON 4 MG/2 ML VIAL ONE (12:50)
[2024-12-06] MEDS ORDERED: NA CHLORIDE 0.9% 100 ML ONE (12:51)
[2024-12-06] MEDS ORDERED: NA CHLORIDE 0.9% 1,000 ML ONE (12:51)
[2024-12-06] MEDS ORDERED: CEFAZOLIN SODIUM 2 GM/VIAL ONE (12:51)
[2024-12-06 13:02] LABS: Absolute Lymphocytes (CBC) 2.0 K/uL (0.7-4.9); Hematocrit 44.2 % (39.6-49.0); Hemoglobin 14.6 g/dL (13.6-17.9); MCH 30.4 pg (27.0-35.0); MCHC 32.9 g/dL (32.0-36.0); MCV 92.4 fL (80-100); MPV 8.8 fL (7.6-11.3); Nucleated RBC Absolute Count 0.0 (0-0); Nucleated Red Blood Cells % 0.1 % (0-0); RBC Red Blood Cell Count 4.79 M/uL (4.33-5.43); White Blood Count 7.90 thou/uL (4.3-10.9)
[2024-12-06 13:20] LABS: ALT/SGPT 38.0 U/L (16-61); AST/SGOT 28.0 U/L (15-37); Albumin 3.7 g/dL (3.4-5.0); Albumin/Globulin Ratio 1.0 (1.1-1.8); Alkaline Phosphatase 143.0 U/L (45-117); Anion Gap 10.1 mEq/L (5.0-15.0); BUN Blood Urea Nitrogen 22.0 mg/dL (7-18); Globulin 3.7 g/dL (2.3-3.5); Glucose Level 173.0 mg/dL (74-106); Potassium 4.1 mEq/L (3.5-5.1)
--- NOTE | 2024-12-06 13:35 | ER ---
Nurse's Notes [facility] Name: Pranav Carr Age: 29 yrs Sex: Male : 1995 Arrival Date: 12/06/2024 Time: 12:32 Bed 7 Private MD: Diagnosis: Laceration without foreign body of unspecified finger with damage to nail;Displaced fracture of distal phalanx of right ring finger, initial encounter for open fracture-OPEN DISTAL TIP AMPUTATION Presentation: 12/06 12:44 Chief complaint: Patient states: he got his right hand caught in machinery at work with ap3 partial right ring finger amputation and right hand injury. Coronavirus screen: At this time, the client does not indicate any symptoms associated with coronavirus-19. Ebola Screen: No symptoms or risks identified at this time. Initial Sepsis Screen: Does the patient meet any 2 criteria? No. Patient's initial sepsis screen is negative. Does the patient have a suspected source of infection? No. Patient's initial sepsis screen is negative. Risk Assessment: Do you want to hurt yourself or someone else? Patient reports no desire to harm self or others. Onset of symptoms was December 06, 2024 at 11:50. Care prior to arrival: None. 12:44 Method Of Arrival: EMS: [facility] ap3 12:44 Acuity: YULISA 2 ap3 Triage Assessment: 12:46 General: Appears uncomfortable, Behavior is calm, cooperative, appropriate for age. ap3 Pain: Complains of pain in right hand. Neuro: Level of Consciousness is awake, alert, obeys commands, Oriented to person, place, time, situation, Appropriate for age. Cardiovascular: Patient's skin is warm and dry. Respiratory: Airway is patent Respiratory effort is even, unlabored, Respiratory pattern is regular, symmetrical. Injury Description: Amputation sustained to right ring finger. Historical: - Allergies: 12:46 No Known Allergies; ap3 - Home Meds: 12:46 lisinopril 10 mg Oral tab 1 tab once daily [Active]; ap3 - PMHx: 12:46 Hypertensive disorder; ap3 - PSHx: 12:46 Appendectomy; ap3 - Immunization history:: Last tetanus immunization: up to date. - Infectious Disease History:: Denies. - Social history:: Smoking status: unknown. - Family history:: not pertinent. Screenin:47 [facility] ED Fall Risk Assessment (Adult) History of falling in the last 3 months, ap3 including since admission No falls in past 3 months (0 pts) Confusion or Disorientation No (0 pts) Intoxicated or Sedated No (0 pts) Impaired Gait No (0 pts) Mobility Assist Device Used No (0 pt) Altered Elimination No (0 pt) Score/Fall Risk Level 0 - 2 = Low Risk Oriented to surroundings, Maintained a safe environment, Educated pt \T\ family on fall prevention, incl call for assistance when getting out of bed, Assessed \T\ reinforced patient's understanding of fall precautions, Hourly rounding (assess needs \T\ fall precautionary measures) done, Used ambulatory aids as needed (educated on \T\ assisted with). Abuse screen: Denies threats or abuse. Nutritional screening: No deficits noted. Tuberculosis screening: No symptoms or risk factors identified. Assessment: 13:22 General: Behavior is calm, cooperative. Neuro: Level of Consciousness is awake, alert, ap3 obeys commands, Oriented to person, place, time, situation. Cardiovascular: Patient's skin is warm and dry. Respiratory: Airway is patent Respiratory effort is even, unlabored, Respiratory pattern is regular, symmetrical. Musculoskeletal: Amputation of right ring finger. 14:05 General: report called to [facility]. ap3 Vital Signs: 12:44 BP 128 / 79; Pulse 73; Resp 18; Temp 98.2; Pulse Ox 97% on R/A; Weight 97.52 kg; Height ap3 6 ft. 1 in. ; 13:23 BP 128 / 79; Pulse 82; Resp 18; Pulse Ox 100% on R/A; ap3 14:06 BP 133 / 74; Pulse 83; Resp 18; Pulse Ox 100% on R/A; ap3 14:51 BP 128 / 74; Pulse 77; Resp 18; Pulse Ox 99% on R/A; ap3 12:44 Body Mass Index 28.37 (97.52 kg, 185.42 cm) ap3 ED Course: 12:35 Patient arrived in ED. sp 12:38 Derek Nichols MD is Attending Physician. dr5 12:43 Melyssa Pollard, PRANAY is Primary Nurse. ap3 12:46 Triage completed. ap3 12:47 Patient has correct armband on for positive identification. Bed in low position. Call ap3 light in reach. Side rails up X 1. Adult w/ patient. 12:52 CMP Sent. em1 12:52 CBC with Diff Sent. em1 12:52 Initial lab(s) drawn, by me, sent to lab. Inserted saline lock: 20 gauge in left em1 antecubital area, using aseptic technique. Blood collected. Flushed with 10 mL NS. 13:22 Dr. Nichols called [facility] for transfer. sp 13:23 Arm band placed on left wrist. ap3 13:31 Hand Right 3 View XRAY In Process Unspecified. EDMS 13:[address] Fred Graham accepted pt 1346 admin approval by Digna Zepeda to sp [facility] report [phone] fax [phone]. 14:07 Provided Education on: medications prior to administration . ap3 14:17 called [facility] for transfer talked to Diamante. sp 14:50 No provider procedures requiring assistance completed. Patient transferred, IV remains ap3 in place. Administered Medications: 12:56 Not Given (patient UTD): boostrix tdap0.5 ml IM once; as a single dose ap3 13:08 Drug: NS 0.9% IV 1000 ml IV at 1 bolus Per protocol; to be given as a bolus over 60 ap3 minutes Route: IV; Rate: 1 bolus; Site: left antecubital; 14:49 Follow up: IV Status: Completed infusion; IV Intake: 1000ml ap3 13:08 Drug: fentaNYL (PF) IVP 50 mcg IVP once Route: IVP; Site: left antecubital; ap3 14:07 Follow up: Response: No adverse reaction; Pain is decreased ap3 13:08 Drug: Ondansetron IVP 8 mg IVP once; over 2 minutes Route: IVP; Site: left antecubital; ap3 14:07 Follow up: Response: No adverse reaction; Nausea is decreased ap3 13:19 Drug: ceFAZolin IVPB 2 grams IVPB once over 30 mins; (mix in 100 mL NS) Route: IVPB; ap3 Infused Over: 30 mins; Site: left antecubital; 14:49 Follow up: IV Status: Completed infusion ap3 13:20 Drug: Bupivacaine Infiltration (0.5 %) 4 ml 10 ml Infiltration once {Note: by dr mellisa nichols.} Volume: 10 ml; Route: Infiltration; 14:06 Follow up: Response: No adverse reaction ap3 13:20 Drug: Lidocaine Infiltration (1 %) 4 ml 20 ml Infiltration once; to bedside {Note: by ap3 dr nichols.} Volume: 20 ml; Route: Infiltration; 14:06 Follow up: Response: No adverse reaction ap3 14:49 Drug: fentaNYL (PF) IVP 50 mcg IVP once Route: IVP; Site: left antecubital; ap3 14:49 Follow up: Response: Medication Administered at Departure ap3 Medication: 14:50 VIS not applicable for this client. ap3 Intake: 14:49 IV: 1000ml; Total: 1000ml. ap3 Outcome: 13:34 ER care complete, transfer ordered by MD. wallis 14:50 Transferred by ground EMS to [facility], ap3 14:50 Condition: good 14:50 Discharge instructions given to patient, family, Instructed on the need for transfer, 14:51 Patient left the ED. ap3 Signatures: Dispatcher [employer] Derek Bourgeois MD MD cha Pinkerton, Shawna sp Martinez, Eric em1 Melyssa Pollard RN RN ap3 David Adam, FLOOR LAYER-C FLOOR LAYER-Cdr5
--- NOTE | 2024-12-06 13:35 | EDPHYS ---
Physician Documentation [facility] Name: Pranav Carr Age: 29 yrs Sex: Male : 1995 Arrival Date: 12/06/2024 Time: 12:32 Bed 7 Private MD: ED Physician Derek Nichols HPI: 12/06 13:23 This 29 yrs old Male presents to ER via EMS with complaints of Hand Injury. kadi 13:23 The patient or guardian reports decreased range of motion, pain, swelling, right distal kadi tip, 4th, index. The complaints affect the DIP of left ring finger. Context: The problem was sustained at work. Onset: The symptoms/episode began/occurred just prior to arrival. Modifying factors: The symptoms are alleviated by nothing, elevation, the symptoms are aggravated by movement, dependent position. Associated signs and symptoms: The patient has no apparent associated signs or symptoms. Severity of symptoms: At their worst the symptoms were moderate, in the emergency department the symptoms are unchanged. The patient has not experienced similar symptoms in the past. Historical: - Allergies: 12:46 No Known Allergies; ap3 - Home Meds: 12:46 lisinopril 10 mg Oral tab 1 tab once daily [Active]; ap3 - PMHx: 12:46 Hypertensive disorder; ap3 - PSHx: 12:46 Appendectomy; ap3 - Immunization history:: Last tetanus immunization: up to date. - Infectious Disease History:: Denies. - Social history:: Smoking status: unknown. - Family history:: not pertinent. ROS: 13:23 Constitutional: Negative for fever, chills, and weight loss, Eyes: Negative for injury, kadi pain, redness, and discharge, ENT: Negative for injury, pain, and discharge, Neck: Negative for injury, pain, and swelling, Cardiovascular: Negative for chest pain, palpitations, and edema, Respiratory: Negative for shortness of breath, cough, wheezing, and pleuritic chest pain, Abdomen/GI: Negative for abdominal pain, nausea, vomiting, diarrhea, and constipation, Back: Negative for injury and pain, : Negative for injury, bleeding, discharge, and swelling, Skin: Negative for injury, rash, and discoloration, Neuro: Negative for headache, weakness, numbness, tingling, and seizure, Psych: Negative for depression, anxiety, suicide ideation, homicidal ideation, and hallucinations, Allergy/Immunology: Negative for hives, rash, and allergies, Endocrine: Negative for neck swelling, polydipsia, polyuria, polyphagia, and marked weight changes, Hematologic/Lymphatic: Negative for swollen nodes, abnormal bleeding, and unusual bruising, 13:23 MS/extremity: Positive for decreased range of motion, erythema, laceration, pain, swelling, tenderness, of the lateral aspect of right fingers, medial aspect of right fingers, palmar aspect of distal phalanx of right little finger, palmar aspect of distal phalanx of right ring finger, palmar aspect of distal phalanx of right middle finger and palmar aspect of proximal phalanx of right thumb, Exam: 13:23 Constitutional: This is a well developed, well nourished patient who is awake, alert, kadi and in no acute distress. Head/Face: Normocephalic, atraumatic. Eyes: Pupils equal round and reactive to light, extra-ocular motions intact. Lids and lashes normal. Conjunctiva and sclera are non-icteric and not injected. Cornea within normal limits. Periorbital areas with no swelling, redness, or edema. ENT: Nares patent. No nasal discharge, no septal abnormalities noted. Tympanic membranes are normal and external auditory canals are clear. Oropharynx with no redness, swelling, or masses, exudates, or evidence of obstruction, uvula midline. Mucous membranes moist. Neck: Trachea midline, no thyromegaly or masses palpated, and no cervical lymphadenopathy. Supple, full range of motion without nuchal rigidity, or vertebral point tenderness. No Meningismus. Chest/axilla: Normal chest wall appearance and motion. Nontender with no deformity. No lesions are appreciated. Cardiovascular: Regular rate and rhythm with a normal S1 and S2. No gallops, murmurs, or rubs. Normal PMI, no JVD. No pulse deficits. Respiratory: Lungs have equal breath sounds bilaterally, clear to auscultation and percussion. No rales, rhonchi or wheezes noted. No increased work of breathing, no retractions or nasal flaring. Abdomen/GI: Soft, non-tender, with normal bowel sounds. No distension or tympany. No guarding or rebound. No evidence of tenderness throughout. Back: No spinal tenderness. No costovertebral tenderness. Full range of motion. Male : Normal genitalia with no discharge or lesions. Skin: Warm, dry with normal turgor. Normal color with no rashes, no lesions, and no evidence of cellulitis. Neuro: Awake and alert, GCS 15, oriented to person, place, time, and situation. Cranial nerves II-XII grossly intact. Motor strength 5/5 in all extremities. Sensory grossly intact. Cerebellar exam normal. Normal gait. Psych: Awake, alert, with orientation to person, place and time. Behavior, mood, and affect are within normal limits. 13:23 Musculoskeletal/extremity: ROM: limited active range of motion, in the right hand, limited passive range of motion, limited active range of motion due to pain, limited passive range of motion due to pain, Circulation is intact in all extremities. Sensation intact. Compartment Syndrome exam of affected extremity: is normal. Vital Signs: 12:44 BP 128 / 79; Pulse 73; Resp 18; Temp 98.2; Pulse Ox 97% on R/A; Weight 97.52 kg; Height ap3 6 ft. 1 in. ; 13:23 BP 128 / 79; Pulse 82; Resp 18; Pulse Ox 100% on R/A; ap3 14:06 BP 133 / 74; Pulse 83; Resp 18; Pulse Ox 100% on R/A; ap3 14:51 BP 128 / 74; Pulse 77; Resp 18; Pulse Ox 99% on R/A; ap3 12:44 Body Mass Index 28.37 (97.52 kg, 185.42 cm) ap3 Procedures: 13:30 Performed dight block lido /marcaine 4th , 5th. [facility] MDM: 12:39 Medical Screening Exam initiated [facility] 13:29 Data reviewed: vital signs, nurses notes, lab test result(s), radiologic studies, plain kadi films. Consideration of Admission/Observation Escalation of care including admission/observation considered. I considered the following discharge prescriptions or medication management in the emergency department Medications were administered in the Emergency Department. See MAR. Independent interpretation of the following test(s) in the Emergency Department X-Ray: My interpretation is right hand. Test considered but Not performed: CT: no ct hand. Historians other than the Patient: EMS: ems well informed. Care significantly affected by the following chronic conditions: Hypertension. 13:30 Differential diagnosis: dislocation, open fracture, closed fracture, contusion, kadi tendonitis. 16:54 ED course: family jairo bush in the [facility] [place]. [facility] 12/06 12:41 Order name: CBC with Diff 12/06 12:41 Order name: CMP [facility] 12/06 12:41 Order name: Hand Right 3 View XRAY 12/06 12:41 Order name: NPO; Complete Time: 12:44 [facility] 12/06 12:41 Order name: Dressing - Wound; Complete Time: 13:09 [facility] 12/06 12:41 Order name: Gloves, Sterile; Complete Time: 13:09 [facility] 12/06 12:41 Order name: Setup Suture Tray; Complete Time: 12:44 [facility] Administered Medications: 12:56 Not Given (patient UTD): boostrix tdap0.5 ml IM once; as a single dose ap3 13:08 Drug: NS 0.9% IV 1000 ml IV at 1 bolus Per protocol; to be given as a bolus over 60 ap3 minutes Route: IV; Rate: 1 bolus; Site: left antecubital; 14:49 Follow up: IV Status: Completed infusion; IV Intake: 1000ml ap3 13:08 Drug: fentaNYL (PF) IVP 50 mcg IVP once Route: IVP; Site: left antecubital; ap3 14:07 Follow up: Response: No adverse reaction; Pain is decreased ap3 13:08 Drug: Ondansetron IVP 8 mg IVP once; over 2 minutes Route: IVP; Site: left antecubital; ap3 14:07 Follow up: Response: No adverse reaction; Nausea is decreased ap3 13:19 Drug: ceFAZolin IVPB 2 grams IVPB once over 30 mins; (mix in 100 mL NS) Route: IVPB; ap3 Infused Over: 30 mins; Site: left antecubital; 14:49 Follow up: IV Status: Completed infusion ap3 13:20 Drug: Bupivacaine Infiltration (0.5 %) 4 ml 10 ml Infiltration once {Note: by dr mellisa nichols.} Volume: 10 ml; Route: Infiltration; 14:06 Follow up: Response: No adverse reaction ap3 13:20 Drug: Lidocaine Infiltration (1 %) 4 ml 20 ml Infiltration once; to bedside {Note: by mellisa nichols.} Volume: 20 ml; Route: Infiltration; 14:06 Follow up: Response: No adverse reaction ap3 14:49 Drug: fentaNYL (PF) IVP 50 mcg IVP once Route: IVP; Site: left antecubital; ap3 14:49 Follow up: Response: Medication Administered at Departure ap3 Disposition Summary: 12/06/24 13:34 Transfer Ordered Notes: Transfer Location: [facility] Reason: Higher level of care kadi Condition: Stable kadi Problem: new kadi Symptoms: have improved kadi Accepting Physician: to [facility](12/06/24 14:51) ap3 Diagnosis - Laceration without foreign body of unspecified finger with damage to nail kadi - Displaced fracture of distal phalanx of right ring finger, initial encounter for kadi open fracture - OPEN DISTAL TIP AMPUTATION Forms: - Medication Reconciliation Form kadi - SBAR form kadi Critical care time excluding procedures: 13:32 Critical care time: Bedside Care: 25 minutes, Consultation: 10 minutes, Family kadi Intervention: 5 minutes. Total time: 40 minutes Signatures: Dispatcher [employer] EDMS Derek Nichols MD MD cha Prokisch, Amanda RN RN ap3 Corrections: (The following items were deleted from the chart) 12:42 12:42 Hand Right 3 View+RAD.RAD.BRZ ordered. EDWA EDMS 14:51 13:34 to [facility] ap3
--- NOTE | 2024-12-06 14:01 | RAD REPORT ---
Exam:Hand Right 3 View HISTORY: Right hand pain FINDINGS: Soft tissue amputation distal aspect of the fourth phalanx. In addition there is avulsion fracture of the fourth terminal tuft. No dislocation
[2024-12-06 18:25] VITALS: TEMP 98.2
[2024-12-06 18:28] VITALS: BP 128/74; O2SAT 99
== END 2024-12-06 14:51 | disposition short-term general hospital (02) ==
LOC: ER 12:32
DX: S68.124A Partial traumatic metacarpophalangeal amputation of right ring finger, initial encounter (principal)
CPT/HCPCS: 96365; 85025; 36415; 80053; 73130; 96375; 99285; J2003; J3010 ×2; J2405; J7030